=== PATIENT | female | born 1995 | race Caucasian/White ===

== ENCOUNTER 2019-07-13 11:20 | Emergency (ER) | payer BC, OTHER ==
[~2019-07-13] VITALS: Ht 152.4 cm; Wt 88.5 kg
[2019-07-13] MEDS ORDERED: IV NORMAL SALINE 1,000ML 1,000 ML IV ONE (11:45)
--- NOTE | 2019-07-13 11:50 | PHYS DOC ---
Adult General Chief Complaint Chief Complaint: FLANK PAIN HPI HPI 23-year-old female presents with left flank pain. The patient had pain starting in her chest a couple of days ago. It resolved on its own. She had another episode the next day. Was all the other side of her chest. These pains are sharp and intense last less than a minute. Today the patient has had more persistent pain in her left flank that radiates across her abdomen. She says that when the pain is at its worst it is severe. He had a mild level. The pain is sharp and stabbing. Patient denies dysuria or increased urinary frequency. Last menstrual period was 2 weeks ago. She denies fever or chills. Review of Systems Review of Systems Constitutional: Denies fever or chills [] Eyes: Denies change in visual acuity, redness, or eye pain [] HENT: Denies nasal congestion or sore throat [] Respiratory: Denies cough or shortness of breath [] Cardiovascular: No additional information not addressed in HPI [] GI: Denies abdominal pain, nausea, vomiting, bloody stools or diarrhea [] : Denies dysuria or hematuria [] Musculoskeletal: Left flank pain[] Integument: Denies rash or skin lesions [] Neurologic: Denies headache, focal weakness or sensory changes [] Endocrine: Denies polyuria or polydipsia [] All other systems were reviewed and found to be within normal limits, except as documented in this note. Current Medications Current Medications Current Medications Medications (Trade) Dose Ordered Sig/Annabelle Start Time Stop Time Status Last Admin Dose Admin Sodium Chloride 1,000 ml @ 1,000 mls/hr 1X ONCE 07/13/19 11:45 07/13/19 12:44 UNV Allergies Allergies Allergies Coded Allergies Type Severity Reaction Last Updated Verified No Known Drug Allergies 07/13/19 No Physical Exam Physical Exam Constitutional: Well developed, obese, well nourished, no acute distress, non- toxic appearance. [] HENT: Normocephalic, atraumatic, bilateral external ears normal, oropharynx moist, no oral exudates, nose normal. [] Eyes: PERRLA, EOMI, conjunctiva normal, no discharge. [] Neck: Normal range of motion, no tenderness, supple, no stridor. [] Cardiovascular:Heart rate regular rhythm, no murmur [] Lungs & Thorax: Bilateral breath sounds clear to auscultation [] Abdomen: Bowel sounds normal, soft, no tenderness, no masses, no pulsatile masses. [] Skin: Warm, dry, no erythema, no rash. [] Back: No tenderness, no CVA tenderness. [] Extremities: No tenderness, no cyanosis, no clubbing, ROM intact, no edema. [] Neurologic: Alert and oriented X 3, normal motor function, normal sensory function, no focal deficits noted. [] Psychologic: Affect normal, judgement normal, mood normal. : deferred due to patient request [] EKG EKG [] Radiology/Procedures Radiology/Procedures [] Impressions: Indication:Flank pain. Positive test. TECHNIQUE: Ultrasound OB less than 14 weeks.. COMPARISON: None FINDINGS: Anteverted uterus measuring 11 point for by 5.0 x 7.0 cm. Cervix measures 4.1 cm in length and is closed. Single intrauterine seen with yolk sac measuring 2.6 mm in diameter. [place]-rump length measures 0.62 cm corresponding to estimated gestation age of 6 weeks 3 days. No cardiac motion identified. The right ovary measures 2.6 x 1.6 x 1.8 cm. Left ovary is not visualized. IMPRESSION: Single intrauterine line without sonographic evidence of cardiac activity. Findings are concerning for failed first trimester . Correlate with beta-hCG. Electronically signed by: Abraham Zamarripa DO (07/13/2019 1:01 PM) [facility] DICTATED AND SIGNED BY: ABRAHAM ZAMARRIPA DO DATE: 07/13/19 6861 CC: KING TORREZ DO; PCP,NO ~ Course & Med Decision Making Course & Med Decision Making Pertinent Labs and Imaging studies reviewed. (See chart for details) The patient's urine is positive. I will order a quantitative serum hCG and an ultrasound. Patient has urinary tract infection. I will treat her with 1 g Rocephin IV followed by oral antibiotics. Her serum hCG is 20,064. Her ultrasound shows an intrauterine fetus, but no heartbeat. The patient has deferred physical exam to see if her cervical os is closed. 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 This is likely a missed as she had bleeding couple weeks ago, but there is still retained tissue. Patient understands this. She will follow-up as an is possible. She is stable for discharge at this time. [] Dragon Disclaimer Dragon Disclaimer This electronic medical record was generated, in whole or in part, using a voice recognition dictation system. Departure Departure: Impression: Primary Impression: UTI (urinary tract infection) Additional Impression: Missed with demise before 20 completed weeks of gestation Disposition: HOME, SELF-CARE Condition: STABLE Referrals: PCP,NO (PCP) Patient Instructions: Miscarriage, [id number] Scripts Nitrofurantoin Monohyd/M-Cryst (MACROBID 100 MG CAPSULE) 100 Mg Capsule 1 CAP PO BID for UTI, #10 CAP Prov: KING TORREZ DO 07/13/19 Problem Qualifiers Primary Impression: UTI (urinary tract infection) Urinary tract infection type: acute cystitis Hematuria presence: with hematuria Qualified Codes: N30.01 - Acute cystitis with hematuria KING TORREZ DO Jul 13, 2019 11:50
[2019-07-13 12:01] LABS: BACTERIA,URINE MOD /HPF (0-FEW); BILIRUBIN,URINE NEG (NEG); CLARITY,URINE CLOUDY; COLOR,URINE YELLOW; GLUCOSE,URINE NEG (NEG); NITRITE,URINE NEG (NEG); UROBILINOGEN,URINE 1 mg/dL (0.2 mg/dL)
[2019-07-13 12:02] LABS: SQUAMOUS EPITHELIAL CELL,UR MOD /LPF
[2019-07-13 12:25] LABS: BASO # 0.1 x10^3/uL (0.0-0.2); BASO % 1 % (0-3); EOS # 0.1 x10^3/uL (0.0-0.7); EOS % 1 % (0-3); HEMATOCRIT 35.4 % (36.0-47.0); HEMOGLOBIN 11.4 g/dL (12.0-15.5); LYMPH # 2.2 x10^3/uL (1.0-4.8); LYMPH % 24 % (24-48); MEAN CORPUSCULAR HEMOGLOBIN 25 pg (25-35); MEAN CORPUSCULAR HGB CONC 32 g/dL (31-37); MEAN CORPUSCULAR VOLUME 79 fL (79-100); MONO # 0.6 x10^3/uL (0.0-1.1); MONO % 6 % (0-9); NEUT # 6.5 x10^3uL (1.8-7.7); NEUT % 68 % (31-73); PLATELET COUNT 361 x10^3/uL (140-400); RED BLOOD COUNT 4.48 x10^6/uL (3.50-5.40); RED CELL DISTRIBUTION WIDTH 16.3 % (11.5-14.5); WHITE BLOOD COUNT 9.5 x10^3/uL (4.0-11.0)
[2019-07-13 12:37] LABS: ALBUMIN 3.5 g/dL (3.4-5.0); ALBUMIN/GLOBULIN RATIO 0.9 (1.0-1.7); CALCIUM 8.7 mg/dL (8.5-10.1); CREATININE 0.6 mg/dL (0.6-1.0); GFR 122.8; POTASSIUM 3.8 mmol/L (3.5-5.1); TOTAL BILIRUBIN 0.3 mg/dL (0.2-1.0); TOTAL PROTEIN 7.6 g/dL (6.4-8.2)
--- NOTE | 2019-07-13 13:04 | RAD ---
Indication:Flank pain. Positive test. TECHNIQUE: Ultrasound OB less than 14 weeks.. COMPARISON: None FINDINGS: Anteverted uterus measuring 11 point for by 5.0 x 7.0 cm. Cervix measures 4.1 cm in length and is closed. Single intrauterine seen with yolk sac measuring 2.6 mm in diameter. [place]-rump length measures 0.62 cm corresponding to estimated gestation age of 6 weeks 3 days. No cardiac motion identified. The right ovary measures 2.6 x 1.6 x 1.8 cm. Left ovary is not visualized. IMPRESSION: Single intrauterine line without sonographic evidence of cardiac activity. Findings are concerning for failed first trimester . Correlate with beta-hCG. Electronically signed by: Abraham Copeland DO (07/13/2019 1:01 PM) [facility]
[2019-07-13] MEDS ORDERED: IV NORMAL SALINE 50ML 50 ML ONE (13:09)
[2019-07-13] MEDS ORDERED: cefTRIAXone SODIUM 1 GM VIAL ONE (13:09)
[2019-07-13] MEDS ORDERED: NITR100C62 PO (13:45)
[2019-07-13 14:40] VITALS: BP 146/72
== END 2019-07-13 14:47 | disposition home or self-care (01) ==
LOC: ER 11:20
DX: O23.41 Unspecified infection of urinary tract in pregnancy, first trimester (principal); O02.1 Missed abortion; Z3A.01 Less than 8 weeks gestation of pregnancy
CPT/HCPCS: 36415; 76801; 76817; 80053; 81001; 81025; 84702; 85025; 86900; 86901; 87086; 96374; 99285; J0696; J7030

== ENCOUNTER 2020-03-14 12:50 | Emergency (ER) | payer OTHER ==
[~2020-03-14] VITALS: Ht 152.4 cm; Wt 97.7 kg
[~2020-03-14 12:50] MED LIST: NITR100C62 PO
[2020-03-14 13:48] LABS: BACTERIA,URINE FEW /HPF (0-FEW); BILIRUBIN,URINE NEG (NEG); CLARITY,URINE CLEAR; COLOR,URINE YELLOW; GLUCOSE,URINE NEG (NEG); NITRITE,URINE NEG (NEG); SQUAMOUS EPITHELIAL CELL,UR FEW /LPF; UROBILINOGEN,URINE 0.2 mg/dL (0.2 mg/dL)
[2020-03-14 13:48] LABS: BASO % 1 % (0-3); EOS # 0.1 x10^3/uL (0.0-0.7); EOS % 1 % (0-3); HEMATOCRIT 37.3 % (36.0-47.0); HEMOGLOBIN 12.2 g/dL (12.0-15.5); LYMPH # 2.9 x10^3/uL (1.0-4.8); LYMPH % 35 % (24-48); MEAN CORPUSCULAR HEMOGLOBIN 26 pg (25-35); MEAN CORPUSCULAR HGB CONC 33 g/dL (31-37); MEAN CORPUSCULAR VOLUME 79 fL (79-100); MONO # 0.7 x10^3/uL (0.0-1.1); MONO % 8 % (0-9); NEUT # 4.7 x10^3uL (1.8-7.7); NEUT % 56 % (31-73); PLATELET COUNT 283 x10^3/uL (140-400); RED BLOOD COUNT 4.72 x10^6/uL (3.50-5.40); RED CELL DISTRIBUTION WIDTH 15.8 % (11.5-14.5); WHITE BLOOD COUNT 8.4 x10^3/uL (4.0-11.0)
[2020-03-14 13:57] LABS: CALCIUM 8.6 mg/dL (8.5-10.1); CREATININE 0.5 mg/dL (0.6-1.0); GFR 150.3; POTASSIUM 3.4 mmol/L (3.5-5.1)
[2020-03-14 14:03] LABS: ALBUMIN 3.1 g/dL (3.4-5.0); ALBUMIN/GLOBULIN RATIO 0.7 (1.0-1.7); TOTAL BILIRUBIN 0.2 mg/dL (0.2-1.0); TOTAL PROTEIN 7.5 g/dL (6.4-8.2)
[2020-03-14 14:19] VITALS: BP 144/79
--- NOTE | 2020-03-14 14:24 | RAD ---
INDICATION: Pelvic pain COMPARISON: June 2019 TECHNIQUE: Grayscale and color ultrasound images uterus and adnexa. FINDINGS: Uterus: 131 x 96 x 58 mm. Intrauterine gestational sac is identified. [place]-rump length is 29 mm with a heart beat of 169. Right Ovary: 28 x 22 x 17 mm. Left Ovary: Obscured by bowel gas. Too early in to adequately assess placenta. Gestational sac unremarkable. IMPRESSION: * Intrauterine is identified with estimated gestational age of 9 weeks and 5 days with estimated due date of 10/12/2020. Recommend routine anomaly screening at 18-22 weeks. Electronically signed by: Mirza Hutchinson MD (03/14/2020 2:22 PM) [id number]
--- NOTE | 2020-03-14 14:38 | PHYS DOC ---
Past History Past Medical History: No Pertinent History Past Surgical History: No Surgical History Additional Past Surgical Histo: BILATERAL ARM Alcohol Use: None Drug Use: None General Adult EDM: Chief Complaint: ABDOMINAL PAIN HPI: HPI: Patient is a 24-year-old female who presented to ER today for evaluation of abdominal pain left side. Patient says she is , she says she is about 12 to 13 weeks. Her last menstrual period was on December 25, 2019. Patient have not seen an PHOTOGRAPHIC REPRODUCTION TECHNICIAN doctor yet. She denies any vaginal bleeding. Patient denies any fever, no nausea vomiting. Patient states her pain has been going on for several days. Patient says this is her second . Review of Systems: Review of Systems: Constitutional: Denies fever or chills Eyes: Denies change in visual acuity HENT: Denies nasal congestion or sore throat Respiratory: Denies cough or shortness of breath Cardiovascular: Denies chest pain or edema GI: Positive for lower abdominal pain, no nausea vomiting, no vaginal bleeding or discharge. : Denies dysuria Musculoskeletal: Denies back pain or joint pain Integument: Denies rash Neurologic: Denies headache, focal weakness or sensory changes Endocrine: Denies polyuria or polydipsia Lymphatic: Denies swollen glands Psychiatric: Denies depression or anxiety Heart Score: Risk Factors: Risk Factors: DM, Current or recent (<one month) smoker, HTN, HLP, family history of CAD, obesity. Risk Scores: Score 0 - 3: 2.5% MACE over next 6 weeks - Discharge Home Score 4 - 6: 20.3% MACE over next 6 weeks - Admit for Clinical Observation Score 7 - 10: 72.7% MACE over next 6 weeks - Early Invasive Strategies Allergies: Allergies: Allergies Coded Allergies Type Severity Reaction Last Updated Verified No Known Drug Allergies 07/13/19 No Physical Exam: PE: Constitutional: Well developed, well nourished, no acute distress, non-toxic appearance. [] HENT: Normocephalic, atraumatic, bilateral external ears normal, oropharynx moist, no oral exudates, nose normal. [] Eyes: PERRLA, EOMI, conjunctiva normal, no discharge. [] Neck: Normal range of motion, no tenderness, supple, no stridor. [] Cardiovascular:Heart rate regular rhythm, no murmur [] Lungs & Thorax: Bilateral breath sounds clear to auscultation [] Abdomen: Bowel sounds normal, soft, no tenderness, no masses, no pulsatile masses. There is no tenderness to palpation Skin: Warm, dry, no erythema, no rash. [] Back: No tenderness, no CVA tenderness. [] Extremities: No tenderness, no cyanosis, no clubbing, ROM intact, no edema. [] Neurologic: Alert and oriented X 3, normal motor function, normal sensory function, no focal deficits noted. [] Psychologic: Affect normal, judgement normal, mood normal. [] Current Patient Data: Labs: Laboratory Tests Test 03/14/20 12:55 03/14/20 13:30 Urine Collection Type Unknown Urine Color Yellow Urine Clarity Clear Urine pH 7.0 Urine Specific [place] 1.020 Urine Protein Neg (NEG-TRACE) Urine Glucose (UA) Neg mg/dL (NEG) Urine Ketones (Stick) Neg mg/dL (NEG) Urine Blood Neg (NEG) Urine Nitrite Neg (NEG) Urine Bilirubin Neg (NEG) Urine Urobilinogen Dipstick 0.2 mg/dL (0.2 mg/dL) Urine Leukocyte Esterase Small (NEG) Urine RBC 1-2 /HPF (0-2) Urine WBC 1-4 /HPF (0-4) Urine Squamous Epithelial Cells Few /LPF Urine Bacteria Few /HPF (0-FEW) Urine Mucus Slight /LPF White Blood Count 8.4 x10^3/uL (4.0-11.0) Red Blood Count 4.72 x10^6/uL (3.50-5.40) Hemoglobin 12.2 g/dL (12.0-15.5) Hematocrit 37.3 % (36.0-47.0) Mean Corpuscular Volume 79 fL (79-100) Mean Corpuscular Hemoglobin 26 pg (25-35) Mean Corpuscular Hemoglobin Concent 33 g/dL (31-37) Red Cell Distribution Width 15.8 % (11.5-14.5) H Platelet Count 283 x10^3/uL (140-400) Neutrophils (%) (Auto) 56 % (31-73) Lymphocytes (%) (Auto) 35 % (24-48) Monocytes (%) (Auto) 8 % (0-9) Eosinophils (%) (Auto) 1 % (0-3) Basophils (%) (Auto) 1 % (0-3) Neutrophils # (Auto) 4.7 x10^3uL (1.8-7.7) Lymphocytes # (Auto) 2.9 x10^3/uL (1.0-4.8) Monocytes # (Auto) 0.7 x10^3/uL (0.0-1.1) Eosinophils # (Auto) 0.1 x10^3/uL (0.0-0.7) Basophils # (Auto) 0.0 x10^3/uL (0.0-0.2) Maternal Serum HCG Beta Subunit 01662 mIU/mL (0-6) H Sodium Level 135 mmol/L (136-145) L Potassium Level 3.4 mmol/L (3.5-5.1) L Chloride Level 101 mmol/L (98-107) Carbon Dioxide Level 24 mmol/L (21-32) Anion Gap 10 (6-14) Blood Urea Nitrogen 8 mg/dL (7-20) Creatinine 0.5 mg/dL (0.6-1.0) L Estimated GFR (Cockcroft-Gault) 150.3 BUN/Creatinine Ratio 16 (6-20) Glucose Level 88 mg/dL (70-99) Calcium Level 8.6 mg/dL (8.5-10.1) Total Bilirubin 0.2 mg/dL (0.2-1.0) Aspartate Amino Transferase (AST) 13 U/L (15-37) L Alanine Aminotransferase (ALT) 18 U/L (14-59) Alkaline Phosphatase 70 U/L (46-116) Total Protein 7.5 g/dL (6.4-8.2) Albumin 3.1 g/dL (3.4-5.0) L Albumin/Globulin Ratio 0.7 (1.0-1.7) L Vital Signs: Vital Signs Date Time Temp Pulse Resp B/P (MAP) Pulse Ox O2 Delivery O2 Flow Rate FiO2 03/14/20 14:19 97.8 100 18 144/79 (100) 99 Room Air EKG: EKG: [] Radiology/Procedures: Radiology/Procedures: [][address] [address] IMAGING REPORT Signed PATIENT: JUAN KYLE ACCOUNT: [id number] : 1995 LOCATION: ER AGE: 24 SEX: F EXAM STATUS: REG ER ORD. PHYSICIAN: ESTEPHANIA CONNER DO REASON: LMP 12/25/19, ABDOMINAL PAIN PROCEDURE: OB <14 WKS INDICATION: Pelvic pain COMPARISON: June 2019 TECHNIQUE: Grayscale and color ultrasound images uterus and adnexa. FINDINGS: Uterus: 131 x 96 x 58 mm. Intrauterine gestational sac is identified. [place]-rump length is 29 mm with a heart beat of 169. Right Ovary: 28 x 22 x 17 mm. Left Ovary: Obscured by bowel gas. Too early in to adequately assess placenta. Gestational sac unremarkable. IMPRESSION: * Intrauterine is identified with estimated gestational age of 9 weeks and 5 days with estimated due date of 10/12/2020. Recommend routine anomaly screening at 18-22 weeks. Electronically signed by: Link Sánchez MD (03/14/2020 2:22 PM) [id number] DICTATED AND SIGNED BY: LINK SÁNCHEZ MD DATE: 03/14/20 1422 CC: PCPBANDAR; ESTEPHANIA CONNER DO ~ Course & Med Decision Making: Course & Med Decision Making Pertinent Labs and Imaging studies reviewed. (See chart for details) Patient is a 24-year-old female who was evaluated in ER due to abdominal pain, she is , ultrasound showed that she is about 9 weeks 5 days . She was in no acute distress, no fever, no nausea vomiting. Patient will be discharged home, she will need to follow-up with PHOTOGRAPHIC REPRODUCTION TECHNICIAN doctor for outpatient care. Drew Disclaimer: Drew Disclaimer: This electronic medical record was generated, in whole or in part, using a voice recognition dictation system. Departure Departure: Impression: Primary Impression: Abdominal pain during Disposition: HOME/RESIDENCE PRIOR TO ADM Condition: STABLE Referrals: PCP,BANDAR (PCP) follow up with YOUR PHOTOGRAPHIC REPRODUCTION TECHNICIAN doctor this week. Patient Instructions: Abdominal Pain During ESTEPHANIA CONNER DO March 14, 2020 14:38
== END 2020-03-14 14:50 | disposition home or self-care (01) ==
LOC: ER 12:50
DX: O26.891 Other specified pregnancy related conditions, first trimester (principal); R10.30 Lower abdominal pain, unspecified; Z3A.09 9 weeks gestation of pregnancy
CPT/HCPCS: 36415; 76801; 80053; 81001; 84702; 85025; 86900; 86901; 87086; 99284-25

== ENCOUNTER 2020-08-13 16:33 | Emergency (ER) | payer OTHER ==
[~2020-08-13] VITALS: Ht 152.4 cm; Wt 108.9 kg
[2020-08-13 16:45] VITALS: BP 137/81
--- NOTE | 2020-08-13 18:09 | PHYS DOC ---
Past History Past Medical History: No Pertinent History Past Surgical History: Cholecystectomy, Other Additional Past Surgical Histo: D&C Alcohol Use: None Drug Use: None General Adult EDM: Chief Complaint: COUGH HPI: HPI: 24-year-old female at 31 weeks gestational age with productive cough, nausea, vomiting, body aches for 2 days. Was seen in urgent care yesterday and had a rapid Covid that was negative. Review of Systems: Review of Systems: Constitutional: Denies fever, but has chills Eyes: Denies change in visual acuity HENT: Denies nasal congestion or sore throat Respiratory: Denies cough or shortness of breath Cardiovascular: Denies chest pain or edema GI: Denies abdominal pain, nausea, vomiting, bloody stools or diarrhea : Denies dysuria Musculoskeletal: Denies back pain or joint pain Integument: Denies rash Neurologic: Denies headache, focal weakness or sensory changes Endocrine: Denies polyuria or polydipsia Lymphatic: Denies swollen glands Psychiatric: Denies depression or anxiety Heart Score: Risk Factors: Risk Factors: DM, Current or recent (<one month) smoker, HTN, HLP, family history of CAD, obesity. Risk Scores: Score 0 - 3: 2.5% MACE over next 6 weeks - Discharge Home Score 4 - 6: 20.3% MACE over next 6 weeks - Admit for Clinical Observation Score 7 - 10: 72.7% MACE over next 6 weeks - Early Invasive Strategies Allergies: Allergies: Allergies Coded Allergies Type Severity Reaction Last Updated Verified No Known Drug Allergies 07/13/19 No Physical Exam: PE: Constitutional: Well developed, well nourished, no acute distress, non-toxic a ppearance. [] HENT: Normocephalic, atraumatic, bilateral external ears normal, oropharynx moist, no oral exudates, nose normal. [] Eyes: PERRLA, EOMI, conjunctiva normal, no discharge. [] Neck: Normal range of motion, no tenderness, supple, no stridor. [] Cardiovascular:Heart rate regular rhythm, no murmur [] Lungs & Thorax: Bilateral breath sounds clear to auscultation [] Abdomen: Bowel sounds normal, soft, no tenderness, no masses, no pulsatile masses. [] Skin: Warm, dry, no erythema, no rash. [] Back: No tenderness, no CVA tenderness. [] Extremities: No tenderness, no cyanosis, no clubbing, ROM intact, no edema. [] Neurologic: Alert and oriented X 3, normal motor function, normal sensory function, no focal deficits noted. [] Psychologic: Affect normal, judgement normal, mood normal. [] Current Patient Data: Vital Signs: Vital Signs Date Time Temp Pulse Resp B/P (MAP) Pulse Ox O2 Delivery O2 Flow Rate FiO2 08/13/20 16:45 97.8 114 20 137/81 (99) 98 Room Air EKG: EKG: [] Radiology/Procedures: Radiology/Procedures: Exam: Chest one view INDICATION: Pneumonia, cough, congestion TECHNIQUE: Frontal view of the chest Comparisons: None FINDINGS: The cardiomediastinal silhouette and pulmonary vessels are within normal limits. The lung and pleural spaces are clear. IMPRESSION: No acute cardiopulmonary process. [] Course & Med Decision Making: Course & Med Decision Making Pertinent Labs and Imaging studies reviewed. (See chart for details) [] Dragon Disclaimer: Dragon Disclaimer: This electronic medical record was generated, in whole or in part, using a voice recognition dictation system. Departure Departure: Disposition: 01 NM HOME SELF CARE/HOMELESS Condition: STABLE Referrals: PCP,NO (PCP) Scripts Ondansetron (ONDANSETRON ODT) 4 Mg Tab.rapdis 1 TAB PO PRN Q6-8HRS for nausa, #16 TAB Prov: KASI QUESADA MD 08/13/20 KASI QUESADA MD Aug 13, 2020 18:09
[2020-08-13 18:18] LABS: INFLUENZA A PATIENT NEGATIVE (NEGATIVE); INFLUENZA B PATIENT NEGATIVE (NEGATIVE)
--- NOTE | 2020-08-13 18:19 | RAD ---
Exam: Chest one view INDICATION: Pneumonia, cough, congestion TECHNIQUE: Frontal view of the chest Comparisons: None FINDINGS: The cardiomediastinal silhouette and pulmonary vessels are within normal limits. The lung and pleural spaces are clear. IMPRESSION: No acute cardiopulmonary process. Electronically signed by: Kim Bolivar MD (08/13/2020 6:16 PM) [id number]
[2020-08-13] MEDS ORDERED: ONDA4TAB12 PO (18:32)
== END 2020-08-13 18:50 | disposition home or self-care (01) ==
LOC: ER 16:33
DX: O21.9 Vomiting of pregnancy, unspecified (principal); M79.10 Myalgia, unspecified site; R05 Cough; Z3A.31 31 weeks gestation of pregnancy
CPT/HCPCS: 71045; 87804; 99284

== ENCOUNTER 2020-09-20 15:45 | Emergency (ER) | payer OTHER ==
[~2020-09-20] VITALS: Ht 152.4 cm; Wt 109.0 kg
[~2020-09-20 15:45] MED LIST changes: +ONDA4TAB12 PO
[2020-09-20] MEDS ORDERED: IV NORMAL SALINE 1,000ML 1,000 ML IV ONE (16:00)
--- NOTE | 2020-09-20 16:04 | PHYS DOC ---
Past History Past Medical History: MRSA, Seizure Past Surgical History: Cholecystectomy, Other Additional Past Surgical Histo: D&C Smoking: Non-smoker Alcohol Use: None Drug Use: None General Adult EDM: Chief Complaint: OB/UTERINE CONTRACTIONS HPI: HPI: Patient is a 24 year old female who presents with reports of sensation of "contractions". Patient is 37 weeks [id number]. Reports constant 9/10 pain since 529. Denies fever, headache, or dizziness. Denies fever/chills. Denies trauma. LMP 12/25. Patient "feels like she peed herself" 30 mins ago. Patient had OB appointment last Saturday and was 3 cm dilated at that time. Review of Systems: Review of Systems: Constitutional: Denies fever or chills Eyes: Denies redness or eye pain HENT: Denies nasal congestion or sore throat Respiratory: Reports cough with clear sputum for past week. Cardiovascular: Denies chest pain or palpitations GI/ELECTRONICS INSTRUCTOR: Reports pelvic cramping and . : Denies dysuria or hematuria Musculoskeletal: Denies back pain or joint pain Integument: Denies rash or skin lesions Neurologic: Denies headache, focal weakness or sensory changes Complete systems were reviewed and found to be within normal limits, except as documented in this note. Current Medications: Current Meds: Current Medications Medications (Trade) Dose Ordered Sig/Annabelle Start Time Stop Time Status Last Admin Dose Admin Sodium Chloride 1,000 ml @ 1,000 mls/hr 1X ONCE 09/20/20 16:00 09/20/20 16:59 Allergies: Allergies: Allergies Coded Allergies Type Severity Reaction Last Updated Verified No Known Drug Allergies 09/20/20 No Physical Exam: PE: Constitutional: Well developed, obese, no acute distress, non-toxic appearance HENT: Normocephalic, atraumatic Eyes: Conjunctiva normal, no discharge Neck: Normal range of motion, no tenderness, supple Lungs & Thorax: No respiratory distress, equal chest rise and fall Abdomen: Soft, no tenderness, no guarding/rebound tenderness, gravid abdomen Pelvic exam: No , external genitalia normal, deferred to OB Skin: Warm, dry, no erythema, no rash Extremities: No tenderness, ROM intact, no edema Neurologic: Alert and oriented X 3, no focal deficits noted Psychologic: Affect normal, judgment normal Current Patient Data: Vital Signs: Vital Signs Date Time Temp Pulse Resp B/P (MAP) Pulse Ox O2 Delivery O2 Flow Rate FiO2 09/20/20 15:50 98.1 117 20 123/65 (84) 100 Room Air Course & Med Decision Making: Course & Med Decision Making Patient is a 24 year old female who presents with pelvic pain/cramping. Patient is 37 weeks [id number]. Reports constant 9/10 pain since 529. Patient "feels like she peed herself" 30 mins ago. Patient had OB appointment last Saturday and was 3 cm. Patient reporting contractions approximately every 10 min. NO noted. NO bloody show. heart tones 135bpm. Labs obtained and posted to chart. IVF hydration given. Patient requiring transfer for further evaluation and monitoring in labor and delivery. Reports she follow with Dr. Mathews (OB) at [facility]. Utilized [facility] transfer center. Discussed case with Dr. Pema Flor (OB mission commander with Dr. Mathews), who is in agreement with transfer to labor and delivery at [facility] for further evaluation and treatment. Discussed findings and plan with patient, who acknowledges understanding and agreement. [place]ait Disclaimer: Dragon Disclaimer: This electronic medical record was generated, in whole or in part, using a voice recognition dictation system. Departure Departure: Impression: Primary Impression: Uterine contractions at greater than 20 weeks of gestation Disposition: 05 DC/TRF OTHER TYPE INSTITUTI ([facility] Labor and Delivery- Dr. Pema Flor (OB) accepting) Condition: STABLE Referrals: PCP,BANDAR (PCP) ASIF SULLIVAN DO Sep 20, 2020 16:03
[2020-09-20 16:28] LABS: BASO # 0.1 x10^3/uL (0.0-0.2); BASO % 1 % (0-3); EOS # 0.2 x10^3/uL (0.0-0.7); EOS % 1 % (0-3); HEMOGLOBIN 9.5 g/dL (12.0-15.5); LYMPH # 3.7 x10^3/uL (1.0-4.8); LYMPH % 32 % (24-48); MEAN CORPUSCULAR HEMOGLOBIN 25 pg (25-35); MEAN CORPUSCULAR HGB CONC 32 g/dL (31-37); MEAN CORPUSCULAR VOLUME 78 fL (79-100); MONO # 0.6 x10^3/uL (0.0-1.1); MONO % 5 % (0-9); NEUT % 61 % (31-73); PLATELET COUNT 344 x10^3/uL (140-400); RED BLOOD COUNT 3.84 x10^6/uL (3.50-5.40); RED CELL DISTRIBUTION WIDTH 14.1 % (11.5-14.5); WHITE BLOOD COUNT 11.6 x10^3/uL (4.0-11.0)
[2020-09-20 16:36] LABS: CALCIUM 8.4 mg/dL (8.5-10.1); CREATININE 0.7 mg/dL (0.6-1.0); POTASSIUM 3.2 mmol/L (3.5-5.1)
[2020-09-20 16:42] LABS: ALBUMIN 2.6 g/dL (3.4-5.0); ALBUMIN/GLOBULIN RATIO 0.5 (1.0-1.7); MAGNESIUM 1.6 mg/dL (1.8-2.4); TOTAL BILIRUBIN 0.4 mg/dL (0.2-1.0); TOTAL PROTEIN 7.4 g/dL (6.4-8.2)
[2020-09-20] MEDS ORDERED: ONDANSETRON PF 4 MG/2 ML VIAL. IVP ONE (17:45)
[2020-09-20 18:11] VITALS: BP 116/58
== END 2020-09-20 18:01 | disposition short-term general hospital (02) ==
LOC: ER 15:45
DX: O62.8 Other abnormalities of forces of labor (principal); Z3A.37 37 weeks gestation of pregnancy
CPT/HCPCS: 36415; 80053; 83735; 85025; 96361; 96374; 99285; J2405; J7030

== ENCOUNTER 2020-12-01 08:05 | Emergency (ER) | payer OTHER ==
[~2020-12-01] VITALS: Ht 152.4 cm; Wt 100.0 kg
[2020-12-01] MEDS ORDERED: IV NORMAL SALINE 1,000ML 1,000 ML IV ONE (08:15)
[2020-12-01 08:51] LABS: BASO # 0.1 x10^3/uL (0.0-0.2); BASO % 1 % (0-3); EOS # 0.2 x10^3/uL (0.0-0.7); EOS % 2 % (0-3); HEMATOCRIT 34.7 % (36.0-47.0); HEMOGLOBIN 10.8 g/dL (12.0-15.5); LYMPH # 3.5 x10^3/uL (1.0-4.8); LYMPH % 37 % (24-48); MEAN CORPUSCULAR HEMOGLOBIN 24 pg (25-35); MEAN CORPUSCULAR HGB CONC 31 g/dL (31-37); MEAN CORPUSCULAR VOLUME 78 fL (79-100); MONO # 0.5 x10^3/uL (0.0-1.1); MONO % 6 % (0-9); NEUT # 5.2 x10^3uL (1.8-7.7); NEUT % 55 % (31-73); PLATELET COUNT 373 x10^3/uL (140-400); RED BLOOD COUNT 4.46 x10^6/uL (3.50-5.40); RED CELL DISTRIBUTION WIDTH 16.1 % (11.5-14.5); WHITE BLOOD COUNT 9.6 x10^3/uL (4.0-11.0)
[2020-12-01 08:52] LABS: U PREG PATIENT NEGATIVE (NEG)
[2020-12-01 08:55] LABS: CALCIUM 8.3 mg/dL (8.5-10.1); CREATININE 0.7 mg/dL (0.6-1.0); GFR 101.1
--- NOTE | 2020-12-01 08:56 | PHYS DOC ---
Past History Past Medical History: Seizure Past Surgical History: Cholecystectomy, Tonsillectomy, Other Additional Past Surgical Histo: ARM SUREGY Smoking: Non-smoker Alcohol Use: None Drug Use: None General Adult EDM: Chief Complaint: SEIZURE HPI: HPI: Patient is a 25 year old female, with PMHx of seizures, that presents to the ED via EMS for a witnessed seizure by her boyfriend. She states she woke up this morning nauseous, and went to the bathroom twice to try to vomit, but was unable to. She went back to bed, at an unknown time, and fell asleep, when the boyfriend witnessed seizure-like activity and called EMS. Boyfriend is not in ED, and patient has limited history of seizure like event. She does report falling out of bed and landing on her carpet floor, and might have hit her head on the dresser, but denies any headache or blurry vision. She states she was able to wake up from the event, and had no period of confusion. No episode of incontinence, or trauma to the tongue. She states she has had seizures for a couple years, with her last seizure being a year ago. Patient last saw a neurologist a year ago, and is not taking any medications for her seizures. She is 2 months, from an uncomplicated . No abdominal pain or vaginal bleeding. Patient has no other complaints or symptoms at this time. Review of Systems: Review of Systems: Constitutional: Denies fever or chills Eyes: Denies redness or eye pain HENT: Denies nasal congestion or sore throat. No tongue trauma. Respiratory: Denies cough or shortness of breath Cardiovascular: Denies chest pain or palpitations GI: Denies abdominal pain, or vomiting. No incontinence. : Positive for nausea. Denies dysuria or hematuria. No incontinence. Musculoskeletal: Denies back pain or joint pain Integument: Denies rash or skin lesions Neurologic: Denies headache, focal weakness or sensory changes. Witnessed seizure. Complete systems were reviewed and found to be within normal limits, except as documented in this note. Current Medications: Current Meds: Current Medications Medications (Trade) Dose Ordered Sig/Annabelle Start Time Stop Time Status Last Admin Dose Admin Sodium Chloride 1,000 ml @ 1,000 mls/hr 1X ONCE 12/01/20 08:15 12/01/20 09:14 Allergies: Allergies: Allergies Coded Allergies Type Severity Reaction Last Updated Verified No Known Drug Allergies 12/01/20 No Physical Exam: PE: Constitutional: Well developed, well nourished, no acute distress, non-toxic appearance HENT: Normocephalic, atraumatic Eyes: PERRL, EOMI, conjunctiva normal, no discharge Neck: Normal range of motion, no tenderness, supple Lungs & Thorax: No respiratory distress, equal chest rise and fall Abdomen: Soft, no tenderness Skin: Warm, dry, no erythema, no rash Back: No tenderness, no CVA tenderness Extremities: No tenderness, ROM intact, no edema Neurologic: Alert and oriented X 3, normal motor function, normal sensory function, no focal deficits noted Psychologic: Affect normal, judgment normal Current Patient Data: Vital Signs: Vital Signs Date Time Temp Pulse Resp B/P (MAP) Pulse Ox O2 Delivery O2 Flow Rate FiO2 12/01/20 08:11 98.1 116 18 146/70 (95) 98 Room Air Radiology/Procedures: Radiology/Procedures: PROCEDURE: CT HEAD WO CONTRAST CT HEAD/BRAIN WO Date: 12/01/2020 8:47 AM Clinical Indication: Recent seizure like activity, hx of recent head trauma, history of seizures Comparison: None. Technique: 5 mm axial tomographic images were obtained of the head without contrast. These were viewed on brain and bone windows. One or more of the following dose reduction techniques were utilized: Automated exposure control (AEC), Adjustment of mA and/or kV according to patient size, Use of iterative reconstruction technique such as ASiR, CT scan done according to ALARA and image gently/image wisely Findings: The brain parenchyma is normal in attenuation. No intra- or extra-axial mass or fluid collection. No acute hemorrhage. Dilatation of the lateral and third ventricles. The de la rosa-white matter junction is normal. The subarachnoid cisterns are patent. Mild crowding of the foramen magnum by the cerebellar tonsils. The visualized paranasal sinuses are normal. The visualized portions of the orbits and globes are normal. The mastoid air cells are clear. The account consultant topogram shows no lytic lesion or fracture. Impression: Hydrocephalus. Given history of seizure disorder this may be an acute or chronic process. Correlate with patient's history and/or prior imaging. If this is an unknown/acute state, neurosurgical evaluation and contrast enhanced MRI brain are recommended. Mild crowding of the foramen magnum by the cerebellar tonsils would be better evaluated by MRI to assess for Chiari malformation. FOR INTERNAL CODING PURPOSES Critical result: Findings discussed with Dr. Sullivan at 12/01/2020 9:30 AM. RESULT CODE: (C) Electronically signed by: Trae Villanueva MD (12/01/2020 9:31 AM) [id number] Course & Med Decision Making: Course & Med Decision Making Pertinent Labs and Imaging studies reviewed. (See chart for details) Patient is a 25 year old female, that presents to the ED via EMS for a seizure. Plan to labs and urine, with imaging of head and neck secondary to the fall. Symptomatic treatment. Urine appears to be contaminated. Radiology called about patients CT head showing hydrocephaly. Per patient she has been told she has had "extra water on the brain." No old head CT available for comparison. Patient is neurologically intact, with no headache and states she feels "good," with no complaints. Patient was told to not drive for 6 months or until cleared by neurologist. Patient stable for discharge with outpatient follow-up with PCP. Discussed findings and plan with patient, who acknowledges understanding and agreement. Drew Disclaimer: Drew Disclaimer: This electronic medical record was generated, in whole or in part, using a voice recognition dictation system. Departure Departure: Impression: Primary Impression: Seizure Additional Impression: Nausea Disposition: 01 DC HOME SELF CARE/HOMELESS Condition: STABLE Referrals: PCP,NO (PCP) NATACHA DOLL MD Patient Instructions: Seizure, Adult, [id number] Additional Instructions: Please follow closely with your doctor or neurology. Refrain from operating a motor vehicle or any heavy machinery for 6 months or until cleared by neurologist. Scripts Ondansetron (ONDANSETRON ODT) 4 Mg Tab.rapdis 1 TAB PO PRN Q6-8HRS PRN for NAUSEA, #16 TAB Prov: ASIF SULLIVAN DO 12/01/20 ASIF SULLIVAN DO Dec 01, 2020 08:56
[2020-12-01] MEDS ORDERED: ONDANSETRON PF 4 MG/2 ML VIAL. IVP ONE (09:00)
[2020-12-01 09:01] LABS: ALBUMIN/GLOBULIN RATIO 0.7 (1.0-1.7); MAGNESIUM 1.6 mg/dL (1.8-2.4); TOTAL BILIRUBIN 0.2 mg/dL (0.2-1.0); TOTAL PROTEIN 7.2 g/dL (6.4-8.2)
[2020-12-01 09:09] LABS: BACTERIA,URINE FEW /HPF (0-FEW); BILIRUBIN,URINE NEG (NEG); CLARITY,URINE HAZY; COLOR,URINE YELLOW; GLUCOSE,URINE NEG (NEG); NITRITE,URINE NEG (NEG); SQUAMOUS EPITHELIAL CELL,UR MANY /LPF; UROBILINOGEN,URINE 0.2 mg/dL (0.2 mg/dL)
[2020-12-01] MEDS ORDERED: MAGNESIUM CHLORIDE ER 64 MG TABLET.ER PO ONE (09:30)
--- NOTE | 2020-12-01 09:33 | RAD ---
CT HEAD/BRAIN WO Date: 12/01/2020 8:47 AM Clinical Indication: Recent seizure like activity, hx of recent head trauma, history of seizures Comparison: None. Technique: 5 mm axial tomographic images were obtained of the head without contrast. These were view ed on brain and bone windows. One or more of the following dose reduction techniques were utilized: A utomated exposure control (AEC), Adjustment of mA and/or kV according to patient size, Use of iterati ve reconstruction technique such as ASiR, CT scan done according to ALARA and image gently/image randall ly Findings: The brain parenchyma is normal in attenuation. No intra- or extra-axial mass or fluid collection. No acute hemorrhage. Dilatation of the lateral and third ventricles. The de la rosa-white matter junction is n ormal. The subarachnoid cisterns are patent. Mild crowding of the foramen magnum by the cerebellar tonsils. The visualized paranasal sinuses are normal. The visualized portions of the orbits and globes are no rmal. The mastoid air cells are clear. The trimmer sorter topogram shows no lytic lesion or fracture. Impression: Hydrocephalus. Given history of seizure disorder this may be an acute or chronic process. Correlate w ith patient's history and/or prior imaging. If this is an unknown/acute state, neurosurgical evaluati on and contrast enhanced MRI brain are recommended. Mild crowding of the foramen magnum by the cerebellar tonsils would be better evaluated by MRI to ass ess for Chiari malformation. FOR INTERNAL CODING PURPOSES Critical result: Findings discussed with Dr. Chopra at 12/01/2020 9:30 AM. RESULT CODE: (C) Electronically signed by: Trae Villanueva MD (12/01/2020 9:31 AM) [id number]
[2020-12-01] MEDS ORDERED: ONDA4TAB12 PO (09:37)
[2020-12-01 09:48] VITALS: BP 128/69
== END 2020-12-01 09:49 | disposition home or self-care (01) ==
LOC: ER 08:05
DX: R56.9 Unspecified convulsions (principal); R11.0 Nausea; W06.XXXA Fall from bed, initial encounter; Y93.89 Activity, other specified; Y92.89 Other specified places as the place of occurrence of the external cause; Y99.8 Other external cause status
CPT/HCPCS: 36415; 70450; 80053; 81001; 81025; 82550; 83605; 83735; 85025; 87086; 96361; 96374; 99284; J2405; J7030

== ENCOUNTER 2021-03-06 18:13 | Emergency (ER) | payer OTHER ==
[~2021-03-06] VITALS: Ht 152.4 cm; Wt 109.0 kg
[2021-03-06] MEDS ORDERED: IV NORMAL SALINE 1,000ML 1,000 ML IV ONE (19:00)
[2021-03-06 19:26] LABS: BILIRUBIN,URINE NEG (NEG); CLARITY,URINE CLEAR; COLOR,URINE YELLOW; GLUCOSE,URINE NEG (NEG)
[2021-03-06 19:27] LABS: BACTERIA,URINE FEW /HPF (0-FEW); NITRITE,URINE NEG (NEG); SQUAMOUS EPITHELIAL CELL,UR MOD /LPF; UROBILINOGEN,URINE 0.2 mg/dL (0.2 mg/dL); WBC,URINE RARE /HPF (0-4)
[2021-03-06 19:30] VITALS: BP 137/79
[2021-03-06 19:37] LABS: BASO # 0.1 x10^3/uL (0.0-0.2); BASO % 1 % (0-3); EOS # 0.2 x10^3/uL (0.0-0.7); EOS % 2 % (0-3); HEMATOCRIT 32.7 % (36.0-47.0); HEMOGLOBIN 10.4 g/dL (12.0-15.5); LYMPH # 3.2 x10^3/uL (1.0-4.8); LYMPH % 36 % (24-48); MEAN CORPUSCULAR HEMOGLOBIN 24 pg (25-35); MEAN CORPUSCULAR HGB CONC 32 g/dL (31-37); MEAN CORPUSCULAR VOLUME 74 fL (79-100); MONO # 0.7 x10^3/uL (0.0-1.1); MONO % 8 % (0-9); NEUT # 4.7 x10^3uL (1.8-7.7); NEUT % 53 % (31-73); PLATELET COUNT 384 x10^3/uL (140-400); RED BLOOD COUNT 4.41 x10^6/uL (3.50-5.40); RED CELL DISTRIBUTION WIDTH 16.1 % (11.5-14.5)
[2021-03-06 19:45] LABS: CALCIUM 8.8 mg/dL (8.5-10.1); CREATININE 0.6 mg/dL (0.6-1.0); GFR 120.8; POTASSIUM 3.6 mmol/L (3.5-5.1)
[2021-03-06 19:51] LABS: ALBUMIN 3.4 g/dL (3.4-5.0); ALBUMIN/GLOBULIN RATIO 0.8 (1.0-1.7); TOTAL BILIRUBIN 0.2 mg/dL (0.2-1.0); TOTAL PROTEIN 7.6 g/dL (6.4-8.2)
[2021-03-06] MEDS ORDERED: METOCLOPRAMIDE HCL 10 MG/2 ML VIAL. IVP ONE (20:00)
[2021-03-06] MEDS ORDERED: KETOROLAC 30 MG/ML VIAL. IVP ONE (20:00)
[2021-03-06] MEDS ORDERED: diphenhydrAMINE 50 MG/ML VIAL IVP ONE (20:00)
--- NOTE | 2021-03-06 20:33 | RAD ---
CT HEAD/BRAIN WO Date: 03/06/2021 8:15 PM Clinical Indication: Reason: MIGRAINE. NO TRAUMA / Spl. Instructions: / History: Comparison: 12/01/2020. Technique: 5 mm axial tomographic images were obtained of the head without contrast. These were view ed on brain and bone windows. One or more of the following dose reduction techniques were utilized: A utomated exposure control (AEC), Adjustment of mA and/or kV according to patient size, Use of iterati ve reconstruction technique such as ASiR, CT scan done according to ALARA and image gently/image randall ly Findings: The brain parenchyma is normal in attenuation. No intra- or extra-axial mass or fluid collection. No acute hemorrhage. Dilatation of the lateral and third ventricles, similar to the prior. The de la rosa-whit e matter junction is normal. The subarachnoid cisterns are patent. Left maxillary sinus mucus retention cyst. The visualized portions of the orbits and globes are norm al. The mastoid air cells are clear. Mild crowding of the foramen magnum by the cerebellar tonsils. Impression: 1. No acute infarct or hemorrhage. 2. Unchanged dilated ventricles. Electronically signed by: Trae Villanueva MD (03/06/2021 8:31 PM) [facility]
--- NOTE | 2021-03-06 20:43 | PHYS DOC ---
Past History Past Medical History: Seizure Past Surgical History: Cholecystectomy, , Tonsillectomy Additional Past Surgical Histo: ARM SURGERY Smoking: Non-smoker Alcohol Use: None Drug Use: None General Adult EDM: Chief Complaint: HEADACHE HPI: HPI: 25-year-old female presents with headache. It started 2 days ago. It is a global headache. 7 out of 10. She does not typically have headaches. She denies any trauma. She denies fever or chills. She has no other complaints at this time. Review of Systems: Review of Systems: Constitutional: Denies fever or chills Eyes: Denies change in visual acuity HENT: Denies nasal congestion or sore throat Respiratory: Denies cough or shortness of breath Cardiovascular: Denies chest pain or edema GI: Denies abdominal pain, nausea, vomiting, bloody stools or diarrhea : Denies dysuria Musculoskeletal: Denies back pain or joint pain Integument: Denies rash Neurologic: Headache. Denies focal weakness or sensory changes Endocrine: Denies polyuria or polydipsia Lymphatic: Denies swollen glands Psychiatric: Denies depression or anxiety Current Medications: Current Meds: Current Medications Medications (Trade) Dose Ordered Sig/Annabelle Start Time Stop Time Status Last Admin Dose Admin Diphenhydramine HCl (Benadryl) 25 mg 1X ONCE 03/06/21 20:00 03/06/21 20:02 DC Ketorolac Tromethamine (Toradol 30mg Vial) 30 mg 1X ONCE 03/06/21 20:00 03/06/21 20:02 DC Metoclopramide HCl (Reglan Vial) 10 mg 1X ONCE 03/06/21 20:00 03/06/21 20:02 DC Sodium Chloride 1,000 ml @ 1,000 mls/hr 1X ONCE 03/06/21 19:00 03/06/21 19:59 DC 03/06/21 19:14 1,000 MLS/HR Allergies: Allergies: Allergies Coded Allergies Type Severity Reaction Last Updated Verified No Known Drug Allergies 12/01/20 No Physical Exam: PE: Constitutional: Well developed, well nourished, no acute distress, non-toxic appearance. [] HENT: Normocephalic, atraumatic, bilateral external ears normal, oropharynx moist, no oral exudates, nose normal. [] Eyes: PERRLA, EOMI, conjunctiva normal, no discharge. Photophobia [] Neck: Normal range of motion, no tenderness, supple, no stridor. [] Cardiovascular:Heart rate regular rhythm, no murmur [] Lungs & Thorax: Bilateral breath sounds clear to auscultation [] Abdomen: Bowel sounds normal, soft, no tenderness, no masses, no pulsatile masses. [] Skin: Warm, dry, no erythema, no rash. [] Back: No tenderness, no CVA tenderness. [] Extremities: No tenderness, no cyanosis, no clubbing, ROM intact, no edema. [] Neurologic: Alert and oriented X 3, normal motor function, normal sensory function, no focal deficits noted. [] Psychologic: Affect normal, judgement normal, mood normal. [] Current Patient Data: Labs: Laboratory Tests Test 03/06/21 18:55 03/06/21 19:03 03/06/21 19:05 Urine Collection Type Unknown Urine Color Yellow Urine Clarity Clear Urine pH 8.5 Urine Specific [place] 1.020 Urine Protein Neg (NEG-TRACE) Urine Glucose (UA) Neg mg/dL (NEG) Urine Ketones (Stick) Neg mg/dL (NEG) Urine Blood Mod (NEG) Urine Nitrite Neg (NEG) Urine Bilirubin Neg (NEG) Urine Urobilinogen Dipstick 0.2 mg/dL (0.2 mg/dL) Urine Leukocyte Esterase Neg (NEG) Urine RBC 3-5 /HPF (0-2) Urine WBC Rare /HPF (0-4) Urine Squamous Epithelial Cells Mod /LPF Urine Bacteria Few /HPF (0-FEW) POC Urine HCG, Qualitative hcg negative (Negative) White Blood Count 9.0 x10^3/uL (4.0-11.0) Red Blood Count 4.41 x10^6/uL (3.50-5.40) Hemoglobin 10.4 g/dL (12.0-15.5) L Hematocrit 32.7 % (36.0-47.0) L Mean Corpuscular Volume 74 fL (79-100) L Mean Corpuscular Hemoglobin 24 pg (25-35) L Mean Corpuscular Hemoglobin Concent 32 g/dL (31-37) Red Cell Distribution Width 16.1 % (11.5-14.5) H Platelet Count 384 x10^3/uL (140-400) Neutrophils (%) (Auto) 53 % (31-73) Lymphocytes (%) (Auto) 36 % (24-48) Monocytes (%) (Auto) 8 % (0-9) Eosinophils (%) (Auto) 2 % (0-3) Basophils (%) (Auto) 1 % (0-3) Neutrophils # (Auto) 4.7 x10^3uL (1.8-7.7) Lymphocytes # (Auto) 3.2 x10^3/uL (1.0-4.8) Monocytes # (Auto) 0.7 x10^3/uL (0.0-1.1) Eosinophils # (Auto) 0.2 x10^3/uL (0.0-0.7) Basophils # (Auto) 0.1 x10^3/uL (0.0-0.2) Sodium Level 144 mmol/L (136-145) Potassium Level 3.6 mmol/L (3.5-5.1) Chloride Level 106 mmol/L (98-107) Carbon Dioxide Level 28 mmol/L (21-32) Anion Gap 10 (6-14) Blood Urea Nitrogen 12 mg/dL (7-20) Creatinine 0.6 mg/dL (0.6-1.0) Estimated GFR (Cockcroft-Gault) 120.8 BUN/Creatinine Ratio 20 (6-20) Glucose Level 93 mg/dL (70-99) Calcium Level 8.8 mg/dL (8.5-10.1) Total Bilirubin 0.2 mg/dL (0.2-1.0) Aspartate Amino Transferase (AST) 15 U/L (15-37) Alanine Aminotransferase (ALT) 31 U/L (14-59) Alkaline Phosphatase 104 U/L (46-116) Total Protein 7.6 g/dL (6.4-8.2) Albumin 3.4 g/dL (3.4-5.0) Albumin/Globulin Ratio 0.8 (1.0-1.7) L Vital Signs: Vital Signs Date Time Temp Pulse Resp B/P (MAP) Pulse Ox O2 Delivery O2 Flow Rate FiO2 03/06/21 18:23 98.2 100 18 147/81 (103) 99 Room Air EKG: EKG: [] Radiology/Procedures: Radiology/Procedures: [] Impressions: CT HEAD/BRAIN WO Date: 03/06/2021 8:15 PM Clinical Indication: Reason: MIGRAINE. NO TRAUMA / Spl. Instructions: / History: Comparison: 12/01/2020. Technique: 5 mm axial tomographic images were obtained of the head without contrast. These were viewed on brain and bone windows. One or more of the following dose reduction techniques were utilized: Automated exposure control (AEC), Adjustment of mA and/or kV according to patient size, Use of iterative reconstruction technique such as ASiR, CT scan done according to ALARA and image gently/image wisely Findings: The brain parenchyma is normal in attenuation. No intra- or extra-axial mass or fluid collection. No acute hemorrhage. Dilatation of the lateral and third ventricles, similar to the prior. The de la rosa-white matter junction is normal. The subarachnoid cisterns are patent. Left maxillary sinus mucus retention cyst. The visualized portions of the orbits and globes are normal. The mastoid air cells are clear. Mild crowding of the foramen magnum by the cerebellar tonsils. Impression: 1. No acute infarct or hemorrhage. 2. Unchanged dilated ventricles. Electronically signed by: Omega Chanel MD (03/06/2021 8:31 PM) [facility] DICTATED AND SIGNED BY: OMEGA CHANEL MD DATE: 03/06/212027 CC: KING TORREZ DO; PCP,NO ~MTH0 0 Heart Score: C/O Chest Pain: N/A Risk Factors: Risk Factors: DM, Current or recent (<one month) smoker, HTN, HLP, family history of CAD, obesity. Risk Scores: Score 0 - 3: 2.5% MACE over next 6 weeks - Discharge Home Score 4 - 6: 20.3% MACE over next 6 weeks - Admit for Clinical Observation Score 7 - 10: 72.7% MACE over next 6 weeks - Early Invasive Strategies Course & Med Decision Making: Course & Med Decision Making Pertinent Labs and Imaging studies reviewed. (See chart for details) Given patient a liter normal saline, 30 mg of Toradol, 20 mg of Benadryl, 10 mg of Reglan. Her head CT is negative for acute findings. She has a known dilated ventricles. Patient is already aware of this. The patient is feeling much better at this time she is ready go home. She is stable for discharge. [] Dragon Disclaimer: Dragon Disclaimer: This electronic medical record was generated, in whole or in part, using a voice recognition dictation system. Departure Departure: Impression: Primary Impression: Migraine Disposition: HOME / SELF CARE / HOMELESS Condition: IMPROVED Referrals: PCP,BANDAR (PCP) KING TORREZ DO March 06, 2021 20:43
== END 2021-03-06 22:10 | disposition home or self-care (01) ==
LOC: ER 18:13
DX: G43.909 Migraine, unspecified, not intractable, without status migrainosus (principal); Z90.49 Acquired absence of other specified parts of digestive tract
CPT/HCPCS: 36415; 70450; 80053; 81001; 81025; 85025; 96360; 99284; J7030

== ENCOUNTER 2021-03-18 08:58 | Emergency (ER) | payer OTHER ==
[~2021-03-18] VITALS: Ht 152.4 cm; Wt 88.0 kg
[2021-03-18 09:02] VITALS: BP 136/74
--- NOTE | 2021-03-18 09:05 | PHYS DOC ---
Past History Past Medical History: Seizure Past Surgical History: Cholecystectomy, , Tonsillectomy Additional Past Surgical Histo: ARM SURGERY Smoking: Non-smoker Alcohol Use: None Drug Use: None Adult General Chief Complaint Chief Complaint: NAUSEA/VOMITING/[facility] HPI Patient is a 25-year-old female presenting via EMS for nausea. Patient reports waking up approximately 15 minutes prior to arrival and experiencing nausea prompting her to call EMS. She has no known inciting event, trauma or concerning p.o. ingestion. Reports history of seizures for which she takes Keppra daily, last seizure was "years ago". Has no other medical diagnoses, takes no medications on a daily basis, has not followed up in outpatient setting with primary care in recent months for continuity of care. She has no sick contacts, reports she has had no concerning p.o. ingestions and has been at baseline health without any fever or URI-like symptoms recently. Besides isolated nausea, she has no other complaints. Nonetheless, patient's nausea concerned her and she did not have anything at home to take for this prompting her to call EMS for transport to our facility Review of Systems Review of Systems Fourteen body systems of review of systems have been reviewed. See HPI for pertinent positives and negative responses, other randall all other systems are negative, non-pertinent or non-contributory Allergies Allergies Allergies Coded Allergies Type Severity Reaction Last Updated Verified No Known Drug Allergies 12/01/20 No Physical Exam Physical Exam Constitutional: Well developed, no acute distress, nontoxic appearance, malodorous, poor hygiene overall HENT: Normocephalic, atraumatic, bilateral external ears normal, oropharynx dry with poor dentition, no oral exudates, nose normal with mild clear nasal dis charge present in bilateral nostrils. Eyes: PERRLA, EOMI, conjunctiva normal, no discharge. Neck: Normal range of motion, no tenderness, supple, no stridor. Cardiovascular: Heart rate regular, sinus rhythm, no murmurs rubs or gallops Lungs & Thorax: Bilateral breath sounds clear to auscultation Abdomen: Bowel sounds normal, soft, no tenderness, no masses, no pulsatile masses. Nonsurgical abdomen, no peritoneal signs Skin: Warm, dry, no erythema, no rash. Back: No tenderness, no CVA tenderness. Extremities: No tenderness, no cyanosis, no clubbing, ROM intact, no edema. Neurologic: Alert and oriented X 3, grossly normal motor & sensory function, no focal deficits noted. Psychologic: Flat affect, judgement normal, mood normal. Current Patient Data Vital Signs Vital Signs Date Time Temp Pulse Resp B/P (MAP) Pulse Ox O2 Delivery O2 Flow Rate FiO2 03/18/21 09:02 97.5 112 16 136/74 (94) 100 Room Air Vital Signs Date Time Temp Pulse Resp B/P (MAP) Pulse Ox O2 Delivery O2 Flow Rate FiO2 03/18/21 09:02 97.5 112 16 136/74 (94) 100 Room Air Lab Results Laboratory Tests Test 03/18/21 09:00 03/18/21 09:10 03/18/21 09:36 03/18/21 10:20 White Blood Count 12.3 x10^3/uL Red Blood Count 4.57 x10^6/uL Hemoglobin 10.8 g/dL Hematocrit 34.0 % Mean Corpuscular Volume 74 fL Mean Corpuscular Hemoglobin 24 pg Mean Corpuscular Hemoglobin Concent 32 g/dL Red Cell Distribution Width 15.9 % Platelet Count 413 x10^3/uL Neutrophils (%) (Auto) 50 % Lymphocytes (%) (Auto) 41 % Monocytes (%) (Auto) 6 % Eosinophils (%) (Auto) 2 % Basophils (%) (Auto) 1 % Neutrophils # (Auto) 6.1 x10^3uL Lymphocytes # (Auto) 5.0 x10^3/uL Monocytes # (Auto) 0.7 x10^3/uL Eosinophils # (Auto) 0.3 x10^3/uL Basophils # (Auto) 0.1 x10^3/uL Glucose (Fingerstick) 127 mg/dL Sodium Level 139 mmol/L Potassium Level 3.6 mmol/L Chloride Level 105 mmol/L Carbon Dioxide Level 26 mmol/L Anion Gap 8 Blood Urea Nitrogen 10 mg/dL Creatinine 0.6 mg/dL Estimated GFR (Cockcroft-Gault) 120.8 BUN/Creatinine Ratio 17 Glucose Level 104 mg/dL Lactic Acid Level 1.5 mmol/L Calcium Level 8.3 mg/dL Total Bilirubin 0.3 mg/dL Aspartate Amino Transf (AST/SGOT) 16 U/L Alanine Aminotransferase (ALT/SGPT) 23 U/L Alkaline Phosphatase 88 U/L Total Protein 7.4 g/dL Albumin 3.2 g/dL Albumin/Globulin Ratio 0.8 Urine Collection Type Unknown Urine Color Yellow Urine Clarity Hazy Urine pH 6.5 Urine Specific Cubero 1.020 Urine Protein Neg Urine Glucose (UA) Neg mg/dL Urine Ketones (Stick) Neg mg/dL Urine Blood Trace Urine Nitrite Neg Urine Bilirubin Neg Urine Urobilinogen Dipstick 0.2 mg/dL Urine Leukocyte Esterase Small Urine RBC 1-2 /HPF Urine WBC 11-20 /HPF Urine Bacteria Mod /HPF Urine Opiates Screen Neg Urine Methadone Screen Neg Urine Barbiturates Neg Urine Phencyclidine Screen Neg Urine Amphetamine/Methamphetamine Neg Urine Benzodiazepines Screen Neg Urine Cocaine Screen Neg Urine Cannabinoids Screen Neg Urine Ethyl Alcohol Test 03/18/21 10:27 Bedside Urine HCG, Qualitative hcg negative Current Medications Medications (Trade) Dose Ordered Sig/Annabelle Route PRN Reason Start Time Stop Time Status Last Admin Dose Admin Ondansetron HCl (Zofran) 4 mg STK-MED ONCE .ROUTE 03/18/21 09:07 03/18/21 09:07 DC Ondansetron HCl (Zofran) 4 mg 1X ONCE IVP 03/18/21 09:15 03/18/21 09:26 DC 03/18/21 09:11 Sodium Chloride 1,000 ml @ 1,000 mls/hr 1X ONCE IV 03/18/21 09:15 03/18/21 10:14 DC 03/18/21 09:15 EKG EKG EKG ordered and interpreted by myself at 0915 hrs. as sinus rhythm at 97 bpm, unremarkable intervals, no axis deviation, no acute ischemic findings, no STEMI Radiology/Procedures Radiology/Procedures [] Heart Score C/O Chest Pain: No HEART Score for Chest Pain: HEART Score for Chest Pain Response (Comments) Value History Slighlty/Non-Suspicious 0 ECG Normal 0 Age < 45 0 Risk Factors No Risk Factors 0 Total 0 Risk Factors: Risk Factors: DM, Current or recent (<one month) smoker, HTN, HLP, family history of CAD, obesity. Risk Scores: Risk Factors: DM, Current or recent (<one month) smoker, HTN, HLP, family history of CAD, obesity. Course & Med Decision Making Course & Med Decision Making Vital signs stable. HPI, physical exam and ER work-up nonconcerning for emergent or surgical issues Patient responded to ER intervention that included IV fluid rehydration and IV Zofran I reviewed entirety of ER course. Patient asymptomatic on numerous repeat evaluations. Discussed little indication for further diagnostic work-up while in ER setting. Discussed likely diagnosis of gastroenteritis versus other self- limiting condition Joint decision made given patient's asymptomatic state to discharge home with close PCP follow-up. I will be sending patient home with antiemetic for as needed use. I recommended COVID-19 swab but patient deferred Strict return precautions discussed with good understanding by patient. All questions and concerns addressed prior to your departure in improved condition Dragon Disclaimer Dragon Disclaimer This electronic medical record was generated, in whole or in part, using a voice recognition dictation system. Departure Departure: Impression: Primary Impression: Nausea Disposition: HOME / SELF CARE / HOMELESS Condition: IMPROVED Referrals: PCP,BANDAR (PCP) Patient Instructions: Nausea, Adult Additional Instructions: You were seen for nausea. You most likely have a viral illness which should r esolve in the next few days to a week. You should return to the ED if you develop abdominal pain, fever > 100.3, black/bloody stools, black/bloody vomiting, cannot keep water down, or any other new or concerning symptoms. Scripts Ondansetron Hcl (ZOFRAN) 4 Mg Tablet 1 TAB PO Q8HRS for NAUSEA, #15 TAB Prov: JAZZY ALBA DO 03/18/21 JAZZY ALBA DO March 18, 2021 09:05
[2021-03-18] MEDS ORDERED: ONDANSETRON PF 4 MG/2 ML VIAL. ONE (09:07)
[2021-03-18] MEDS ORDERED: IV NORMAL SALINE 1,000ML 1,000 ML IV ONE (09:15)
[2021-03-18] MEDS ORDERED: ONDANSETRON PF 4 MG/2 ML VIAL. IVP ONE (09:15)
[2021-03-18 09:44] LABS: BASO # 0.1 x10^3/uL (0.0-0.2); BASO % 1 % (0-3); EOS # 0.3 x10^3/uL (0.0-0.7); EOS % 2 % (0-3); HEMOGLOBIN 10.8 g/dL (12.0-15.5); LYMPH % 41 % (24-48); MEAN CORPUSCULAR HEMOGLOBIN 24 pg (25-35); MEAN CORPUSCULAR HGB CONC 32 g/dL (31-37); MEAN CORPUSCULAR VOLUME 74 fL (79-100); MONO # 0.7 x10^3/uL (0.0-1.1); MONO % 6 % (0-9); NEUT # 6.1 x10^3uL (1.8-7.7); NEUT % 50 % (31-73); PLATELET COUNT 413 x10^3/uL (140-400); RED BLOOD COUNT 4.57 x10^6/uL (3.50-5.40); RED CELL DISTRIBUTION WIDTH 15.9 % (11.5-14.5); WHITE BLOOD COUNT 12.3 x10^3/uL (4.0-11.0)
[2021-03-18 10:03] LABS: ALBUMIN 3.2 g/dL (3.4-5.0); ALBUMIN/GLOBULIN RATIO 0.8 (1.0-1.7); CALCIUM 8.3 mg/dL (8.5-10.1); CREATININE 0.6 mg/dL (0.6-1.0); GFR 120.8; POTASSIUM 3.6 mmol/L (3.5-5.1); TOTAL BILIRUBIN 0.3 mg/dL (0.2-1.0); TOTAL PROTEIN 7.4 g/dL (6.4-8.2)
[2021-03-18 10:42] LABS: BARBITURATES NEG (NEG); BENZODIAZEPINES NEG (NEG); CANNABINOIDS NEG (NEG); COCAINE NEG (NEG); METHADONE NEG (NEG); OPIATES NEG (NEG); PHENCYCLIDINE NEG (NEG)
[2021-03-18 10:43] LABS: AMPHETAMINE/METHAMPHETAMINE NEG (NEG)
[2021-03-18 10:45] LABS: BILIRUBIN,URINE NEG (NEG); CLARITY,URINE HAZY; COLOR,URINE YELLOW; GLUCOSE,URINE NEG (NEG)
[2021-03-18 10:46] LABS: NITRITE,URINE NEG (NEG); UROBILINOGEN,URINE 0.2 mg/dL (0.2 mg/dL)
[2021-03-18 10:48] LABS: BACTERIA,URINE MOD /HPF (0-FEW)
[2021-03-18] MEDS ORDERED: ONDA4TAB7 PO (10:55)
--- NOTE | 2021-03-18 12:28 | EKG ---
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
== END 2021-03-18 11:00 | disposition home or self-care (01) ==
LOC: ER 08:58
DX: R11.0 Nausea (principal); Z90.49 Acquired absence of other specified parts of digestive tract
CPT/HCPCS: 36415; 80053; 80307; 81001; 81025; 82947; 83605; 85025; 87086; 93005; 96361; 96374; 99284; J2405; J7030

== ENCOUNTER 2021-10-28 14:19 | Emergency (ER) | payer OTHER ==
[~2021-10-28] VITALS: Ht 152.4 cm; Wt 107.5 kg
[~2021-10-28 14:19] MED LIST changes: +ONDA4TAB7 PO
--- NOTE | 2021-10-28 14:53 | PHYS DOC ---
Past History Past Medical History: Seizure (KASI QUESADA MD) Past Surgical History: Appendectomy, Cholecystectomy, Additional Past Surgical Histo: ARM SURGERY (KASI QUESADA MD) Smoking: Non-smoker Alcohol Use: None Drug Use: None (KASI QUESADA MD) General Adult EDM: Chief Complaint: CHEST PAIN HPI: HPI: Patient is a 26-year-old female coming in for substernal chest pain that radiates to her epigastric area. Patient states that pain is "stabbing". Has been going on for about a week and only happens after she eats, it does not have the pain when drinks. Has taken Tums before and it relieved the pain. Denies any cough, vomiting, or diarrhea. History of cholecystectomy (KASI QUESADA MD) Review of Systems: Review of Systems: All other systems within normal limits except for as noted in the HPI (KASI QUESADA MD) Allergies: Allergies: Allergies Coded Allergies Type Severity Reaction Last Updated Verified No Known Drug Allergies 12/01/20 No (KASI QUESADA MD) Physical Exam: PE: Constitutional: Well developed, well nourished, no acute distress, non-toxic appearance. [] HENT: Normocephalic, atraumatic, bilateral external ears normal, nose normal. [] Eyes: PERRLA, conjunctiva normal, no discharge. [] Neck: No rigidity, supple, no stridor. [] Cardiovascular: Regular rate and rhythm, brisk cap refill [] Lungs & Thorax: Non labored symmetric respirations, no tachypnea or respiratory distress [] Abdomen: Soft, nondistended. Skin: Warm, dry, no erythema, no rash. [] Back: Unremarkable Extremities: No deformities, range of motion grossly intact, no lower extremity edema [] Neurologic: Alert and oriented X 3, no focal deficits noted. [] Psychologic: Affect normal, judgement normal, mood normal. [] (KASI QUESADA MD) Current Patient Data: Vital Signs: Vital Signs Date Time Temp Pulse Resp B/P (MAP) Pulse Ox O2 Delivery O2 Flow Rate FiO2 10/28/21 14:33 98.3 107 16 131/77 (95) 99 Room Air (KASI QUESADA MD) EKG: EKG: Sinus tachycardia, heart rate 106 bpm, normal axis, no ST elevation or depression, no ectopy [] (KASI QUESADA MD) Radiology/Procedures: Radiology/Procedures: [] (KASI QUESADA MD) Impressions: CT THORAX WITH IV contrast History: Chest pain Technique: CT of the chest was performed with intravenous contrast. Coronal and sagittal reconstructions were performed. Exposure: One or more of the following individualized dose reduction techniques were utilized for this examination: 1. Automated exposure control 2. Adjustment of the mA and/or kV according to patient size 3. Use of iterative reconstruction technique. Comparison: None FINDINGS: LUNGS/PLEURA: The pulmonary parenchyma appears within normal limits. There is a mosaic attenuation of bilateral lower lobes, nonspecific can be seen in the setting of small airway disease. No suspicious pulmonary nodules are visualized. No pleural effusion or focal pleural lesion. MEDIASTINUM: No pathologic mediastinal or hilar adenopathy. Calcified right hilar lymph nodes. The thoracic aorta and pulmonary arteries are normal in caliber. The heart is normal in size. No pericardial effusion. No detectable calcified coronary atherosclerosis. There is a 1.6 cm heterogenous nodule in the left thyroid gland with coarse peripheral calcification. Mild distal esophageal wall thickening may relate to reflux dysphagia process. AXILLA/SOFT TISSUE: No supraclavicular or axillary adenopathy. Regional soft tissues are within normal limits. OSSEOUS: No acute or suspicious osseous abnormalities. S-shaped curvature of the thoracolumbar spine. ABDOMEN: The visualized portions of the upper abdomen are unremarkable. Gallbladder is absent. IMPRESSION: 1. Mosaic attenuation of bilateral lower lobes, nonspecific can be seen in the setting of small airway disease. 2. 1.6 cm heterogenous nodule in the left thyroid gland. Correlation with endocrine function and follow-up with nonemergent ultrasound. 3.Mild distal esophageal wall thickening may relate to reflux dysphagia process. Electronically signed by: Fredy Reeder DO (10/28/2021 5:56 PM) [facility] DICTATED AND SIGNED BY: FREDY REEDER DO DATE: 10/28/21 174 CC: KASI QUESADA MD; PCP,NO ~MTH0 0 (KING TORREZ DO) Heart Score: C/O Chest Pain: Yes HEART Score for Chest Pain: HEART Score for Chest Pain Response (Comments) Value History Slighlty/Non-Suspicious 0 ECG Normal 0 Age < 45 0 Risk Factors 1 or 2 Risk Factors 1 Troponin < Normal Limit 0 Total 1 Risk Factors: Risk Factors: DM, Current or recent (<one month) smoker, HTN, HLP, family history of CAD, obesity. Risk Scores: Score 0 - 3: 2.5% MACE over next 6 weeks - Discharge Home Score 4 - 6: 20.3% MACE over next 6 weeks - Admit for Clinical Observation Score 7 - 10: 72.7% MACE over next 6 weeks - Early Invasive Strategies (KASI QUESADA MD) Course & Med Decision Making: Course & Med Decision Making Pertinent Labs and Imaging studies reviewed. (See chart for details) Pending radiology results at shift change, pain-free while emergency department. [] (KASI QUESADA MD) Course & Med Decision Making The patient's CT scan suggest possible small area of disease. There is also 1.6 cm nodule in left thyroid gland. Finally there is some distal esophageal wall thickening which may be reflux dysphagia. See official read for more details. I treated the patient with 20 of Pepcid and 40 of Protonix. I have advised that she do a 30-day course of Protonix 40 mg daily to help treat her reflux. This is likely the source of her discomfort. She is stable for discharge at this time. (KING TORREZ DO) Dragon Disclaimer: Dragon Disclaimer: This electronic medical record was generated, in whole or in part, using a voice recognition dictation system. (KASI QUESADA MD) Departure Departure: Impression: Primary Impression: GERD with esophagitis Disposition: HOME / SELF CARE / HOMELESS Condition: STABLE Referrals: PCP,NO (PCP) Patient Instructions: Gastroesophageal Reflux Disease, Adult, Dqft-[id number] Scripts Pantoprazole Sodium (PROTONIX) 40 Mg Tablet. 1 TAB PO DAILY for GERD, #30 TAB 0 Refills Prov: KING TORREZ DO 10/28/21 KASI QUESADA MD Oct 28, 2021 14:53 KING TORREZ DO Oct 28, 2021 18:22
--- NOTE | 2021-10-28 15:03 | EKG ---
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
[2021-10-28 16:16] LABS: BASO # 0.1 x10^3/uL (0.0-0.2); BASO % 1 % (0-3); EOS # 0.2 x10^3/uL (0.0-0.7); EOS % 2 % (0-3); HEMATOCRIT 37.6 % (36.0-47.0); HEMOGLOBIN 11.8 g/dL (12.0-15.5); LYMPH # 3.9 x10^3/uL (1.0-4.8); LYMPH % 35 % (24-48); MEAN CORPUSCULAR HEMOGLOBIN 24 pg (25-35); MEAN CORPUSCULAR HGB CONC 32 g/dL (31-37); MEAN CORPUSCULAR VOLUME 77 fL (79-100); MONO # 0.8 x10^3/uL (0.0-1.1); MONO % 7 % (0-9); NEUT % 55 % (31-73); PLATELET COUNT 394 x10^3/uL (140-400); RED BLOOD COUNT 4.85 x10^6/uL (3.50-5.40); RED CELL DISTRIBUTION WIDTH 15.4 % (11.5-14.5)
[2021-10-28 16:43] LABS: BACTERIA,URINE FEW /HPF (0-FEW); BILIRUBIN,URINE NEG (NEG); CLARITY,URINE CLEAR; COLOR,URINE YELLOW; GLUCOSE,URINE NEG (NEG); NITRITE,URINE NEG (NEG); RBC,URINE 0 /HPF (0-2); SQUAMOUS EPITHELIAL CELL,UR FEW /LPF; UROBILINOGEN,URINE 0.2 mg/dL (0.2 mg/dL); WBC,URINE OCC /HPF (0-4)
[2021-10-28 16:44] LABS: CALCIUM 8.6 mg/dL (8.5-10.1); CREATININE 0.9 mg/dL (0.6-1.0); GFR 75.1; POTASSIUM 4.3 mmol/L (3.5-5.1)
[2021-10-28 16:49] LABS: ALBUMIN 3.4 g/dL (3.4-5.0); ALBUMIN/GLOBULIN RATIO 0.8 (1.0-1.7); TOTAL BILIRUBIN 0.3 mg/dL (0.2-1.0); TOTAL PROTEIN 7.9 g/dL (6.4-8.2)
[2021-10-28] MEDS ORDERED: IOHEXOL 300 MG/ML 75 ML VIAL. IV ONE (17:15)
--- NOTE | 2021-10-28 17:59 | RAD ---
CT THORAX WITH IV contrast History: Chest pain Technique: CT of the chest was performed with intravenous contrast. Coronal and sagittal reconstructi ons were performed. Exposure: One or more of the following individualized dose reduction techniques were utilized for thi s examination: 1. Automated exposure control 2. Adjustment of the mA and/or kV according to patient size 3. Use of iterative reconstruction technique. Comparison: None FINDINGS: LUNGS/PLEURA: The pulmonary parenchyma appears within normal limits. There is a mosaic attenuation of bilateral lower lobes, nonspecific can be seen in the setting of small airway disease. No suspicious pulmonary nodules are visualized. No pleural effusion or focal pleural lesion. MEDIASTINUM: No pathologic mediastinal or hilar adenopathy. Calcified right hilar lymph nodes. The th oracic aorta and pulmonary arteries are normal in caliber. The heart is normal in size. No pericardia l effusion. No detectable calcified coronary atherosclerosis. There is a 1.6 cm heterogenous nodule in the left thyroid gland with coarse peripheral calcification . Mild distal esophageal wall thickening may relate to reflux dysphagia process. AXILLA/SOFT TISSUE: No supraclavicular or axillary adenopathy. Regional soft tissues are within george l limits. OSSEOUS: No acute or suspicious osseous abnormalities. S-shaped curvature of the thoracolumbar spine. ABDOMEN: The visualized portions of the upper abdomen are unremarkable. Gallbladder is absent. IMPRESSION: 1. Mosaic attenuation of bilateral lower lobes, nonspecific can be seen in the setting of small airwa y disease. 2. 1.6 cm heterogenous nodule in the left thyroid gland. Correlation with endocrine function and foll ow-up with nonemergent ultrasound. 3.Mild distal esophageal wall thickening may relate to reflux dysp hagia process. Electronically signed by: Fredy Butler DO (10/28/2021 5:56 PM) [facility]
[2021-10-28 18:25] VITALS: BP 118/80
[2021-10-28] MEDS ORDERED: PANT40TA3 PO (18:27)
[2021-10-28] MEDS ORDERED: PANTOPRAZOLE IV 40 MG VIAL. IVP ONE (18:30)
[2021-10-28] MEDS ORDERED: FAMOTIDINE 20 MG/2 ML VIAL IVP ONE (18:30)
== END 2021-10-28 18:33 | disposition home or self-care (01) ==
LOC: ER 14:19
DX: K21.00 Gastro-esophageal reflux disease with esophagitis, without bleeding (principal); Z90.89 Acquired absence of other organs; Z90.49 Acquired absence of other specified parts of digestive tract; Z98.890 Other specified postprocedural states
CPT/HCPCS: 36415; 71260; 80053; 81001; 81025; 83690; 84484; 85025; 85379; 93005; 96374; 96375; 99285; C9113; J3490; Q9967

== ENCOUNTER 2022-01-01 14:08 | Emergency (ER) | payer OTHER ==
[~2022-01-01] VITALS: Ht 152.4 cm; Wt 106.4 kg
[~2022-01-01 14:08] MED LIST changes: +PANT40TA3 PO
[2022-01-01] MEDS ORDERED: LIDOCAINE/EPI/TETRACAINE TOPICAL GEL 3 ML. TP ONE (14:30)
[2022-01-01] MEDS ORDERED: ONDANSETRON ODT 4 MG TAB.RAPDIS PO ONE (14:30)
--- NOTE | 2022-01-01 14:34 | PHYS DOC ---
Past History Past Medical History: Seizure Past Surgical History: Appendectomy, Cholecystectomy, Additional Past Surgical Histo: ARM SURGERY Smoking: Non-smoker Alcohol Use: None Drug Use: None General Adult EDM: Chief Complaint: MECHANICAL FALL HPI: HPI: Patient is a 26-year-old female coming in after she slipped on ice and fell and hit the left side of her head. Patient thinks she lost consciousness but unsure of how long. Falls witnessed by her boyfriend. Patient is complaining of nausea but has not vomited. Denies any neck pain or vision changes. Patient's tetanus is up-to-date. Review of Systems: Review of Systems: All other systems within normal limits except for as noted in the HPI Current Medications: Current Meds: Current Medications Medications (Trade) Dose Ordered Sig/Annabelle Start Time Stop Time Status Last Admin Dose Admin Lidocaine/ Epinephrine (Let (Aesi-Mzqlygl-Csuaw) Gel) 3 ml 1X ONCE 01/01/22 14:30 01/01/22 14:31 UNV Ondansetron HCl (Zofran Odt) 4 mg 1X ONCE 01/01/22 14:30 01/01/22 14:31 Allergies: Allergies: Allergies Coded Allergies Type Severity Reaction Last Updated Verified No Known Drug Allergies 12/01/20 No Physical Exam: PE: Constitutional: Well developed, well nourished, no acute distress, non-toxic appearance. [] HENT: Normocephalic, atraumatic, bilateral external ears normal, nose normal. [] Eyes: PERRLA, conjunctiva normal, no discharge. [] Neck: No rigidity, supple, no stridor. No tenderness palpation [] Cardiovascular: Regular rate and rhythm, brisk cap refill [] Lungs & Thorax: Non labored symmetric respirations, no tachypnea or respiratory distress [] Abdomen: Soft, nondistended. Skin: Warm, dry, no erythema, no rash. 1 similar laceration to left parietal scalp [] Back: Unremarkable Extremities: No deformities, range of motion grossly intact, no lower extremity edema. No test palpation on upper or lower extremity [] Neurologic: Alert and oriented X 3, no focal deficits noted. [] Psychologic: Affect normal, judgement normal, mood normal. [] EKG: EKG: [] Radiology/Procedures: Radiology/Procedures: [address] [address] IMAGING REPORT Signed PATIENT: JUAN KYLE ACCOUNT: [id number] : 1995 LOCATION: ER AGE: 26 SEX: F EXAM STATUS: REG ER ORD. PHYSICIAN: KASI QUESADA MD REASON: fall, left head injury PROCEDURE: CT HEAD WO CONTRAST PQRS Compliance Statement: One or more of the following individualized dose reduction techniques were utilized for this examination: 1. Automated exposure control 2. Adjustment of the mA and/or kV according to patient size 3. Use of iterative reconstruction technique CT HEAD WITHOUT CONTRAST History: Reason: fall, left head injury / Spl. Instructions: / History: Comparison: None. Procedure: Axial images are obtained of the head from the skull base through the vertex without IV contrast. Findings: Ventriculomegaly of the lateral and third ventricles is unchanged. No mass-effect, midline shift, hemorrhage, extra-axial fluid collection, or obvious acute infarction is identified. Basilar cisterns are patent. Bone windows demonstrate no acute calvarial abnormality. There is unchanged mild crowding of the foramen magnum by the cerebellar tonsils. There is mucosal thickening of the bilateral ethmoid sinuses. There is no air- fluid level. Mastoid air cells are well aerated. IMPRESSION: 1. No acute intracranial abnormality. 2. There is unchanged ventriculomegaly of the lateral and third ventricles. Electronically signed by: Justin Clemons MD (01/01/2022 3:03 PM) [id number] DICTATED AND SIGNED BY: JUSTIN CLEMONS MD DATE: 01/01/22 1457 CC: KASI QUESADA MD; MALLORY VILLEGAS DO ~MTH0 0 Patient was prepped and draped in normal fashion, wound irrigated and cleansed with normal saline. The 1.5 cm wound was anesthetized with lidocaine 2% with epinephrine. Depth of wound was examined and no foreign bodies found. Wound was approximated with 3 kaley. Wound was [] dressed a nonadherent bandage Heart Score: C/O Chest Pain: No Risk Factors: Risk Factors: DM, Current or recent (<one month) smoker, HTN, HLP, family history of CAD, obesity. Risk Scores: Score 0 - 3: 2.5% MACE over next 6 weeks - Discharge Home Score 4 - 6: 20.3% MACE over next 6 weeks - Admit for Clinical Observation Score 7 - 10: 72.7% MACE over next 6 weeks - Early Invasive Strategies Course & Med Decision Making: Course & Med Decision Making Pertinent Labs and Imaging studies reviewed. (See chart for details) [] Dragon Disclaimer: Dragon Disclaimer: This electronic medical record was generated, in whole or in part, using a voice recognition dictation system. Departure Departure: Impression: Primary Impression: Fall due to slipping on ice or snow Additional Impression: Scalp laceration Disposition: HOME / SELF CARE / HOMELESS Condition: STABLE Referrals: MALLORY VILLEGAS DO (PCP) Patient Instructions: Staple Wound Closure, [id number] Additional Instructions: Return in 10 to 14 days for staple removal Scripts Ondansetron (ONDANSETRON ODT) 4 Mg Tab.rapdis 1 TAB PO PRN Q6-8HRS PRN for NAUSEA, #10 TAB Prov: KASI QUESADA MD 01/01/22 KASI QUESADA MD Jan 01, 2022 14:34
[2022-01-01] MEDS ORDERED: LIDOCAINE 2%/EPI 1:100,000 20 ML VIAL. IJ ONE (14:45)
--- NOTE | 2022-01-01 15:05 | RAD ---
RS Compliance Statement: One or more of the following individualized dose reduction techniques were utilized for this examinat ion: 1. Automated exposure control 2. Adjustment of the mA and/or kV according to patient size 3. Use of iterative reconstruction technique CT HEAD WITHOUT CONTRAST History: Reason: fall, left head injury / Spl. Instructions: / History: Comparison: None. Procedure: Axial images are obtained of the head from the skull base through the vertex without IV co ntrast. Findings: Ventriculomegaly of the lateral and third ventricles is unchanged. No mass-effect, midline shift, hemorrhage, extra-axial fluid collection, or obvious acute infarction is identified. Basilar cisterns are patent. Bone windows demonstrate no acute calvarial abnormality. There is unchanged mild crowding of the fora men magnum by the cerebellar tonsils. There is mucosal thickening of the bilateral ethmoid sinuses. There is no air-fluid level. Mastoid ai r cells are well aerated. IMPRESSION: 1. No acute intracranial abnormality. 2. There is unchanged ventriculomegaly of the lateral and third ventricles. Electronically signed by: Justin Clemons MD (01/01/2022 3:03 PM) [id number]
[2022-01-01] MEDS ORDERED: ONDA4TAB12 PO (15:16)
[2022-01-01 15:20] VITALS: BP 121/80
== END 2022-01-01 15:23 | disposition home or self-care (01) ==
LOC: ER 14:08
DX: S01.01XA Laceration without foreign body of scalp, initial encounter (principal); W00.0XXA Fall on same level due to ice and snow, initial encounter; Y93.89 Activity, other specified; Y92.89 Other specified places as the place of occurrence of the external cause; Y99.8 Other external cause status
CPT/HCPCS: 12001; 70450; 99284; Q0162

== ENCOUNTER 2022-01-11 10:32 | Emergency (ER) | payer OTHER ==
--- NOTE | 2022-01-11 11:05 | PHYS DOC ---
Past History Past Medical History: Seizure (KASHIF ANTHONY) Past Surgical History: Appendectomy, Cholecystectomy, , Other Additional Past Surgical Histo: L ARM SURGERY (KASHIF ANTHONY) Smoking: Non-smoker Alcohol Use: Occasionally Drug Use: None (KASHIF ANTHONY) General Adult EDM: Chief Complaint: SUTURE/STAPLE REMOVAL HPI: HPI: Patient is a 26 year old female who presents for staple removal. Her original injury was 10 days ago. She had a mechanical fall on ice, where she suffered a laceration to the parieto-occipital region behind her right ear. At that time, CT images were negative. She has had no issues with the wound since repair. Patient has no other complaints at this time. (KASHIF ANTHONY) Review of Systems: Review of Systems: ROS negative or noncontributory except as mentioned in HPI. (KASHIF ANTHONY) Allergies: Allergies: Allergies Coded Allergies Type Severity Reaction Last Updated Verified No Known Drug Allergies 01/11/22 No (KASHIF ANTHONY) Physical Exam: PE: Constitutional: Well developed, well nourished, no acute distress, non-toxic appearance. HENT: Normocephalic, well-healing linear laceration noted to the parieto- occipital regionof the scalp behind theright ear, bilateral external ears normal, oropharynx moist, no oral exudates, nose normal. Eyes: EOMI, conjunctiva normal, no discharge. Neck: Normal range of motion, no stridor. Skin: Warm, dry, no erythema, no rash. Extremities: No cyanosis, no clubbing, ROM intact, no edema. Neurologic: Alert and oriented x4, no focal deficits noted. (KASHIF ANTHONY) Current Patient Data: Vital Signs: VS - Last 72 Hours, by Label Date Time Temp Pulse Resp B/P (MAP) Pulse Ox O2 Delivery O2 Flow Rate FiO2 01/11/22 11:10 70 18 142/70 (94) 98 Room Air (KASHIF ANTHONY) Heart Score: C/O Chest Pain: No (KASHIF ANTHONY) Course & Med Decision Making: Course & Med Decision Making Pertinent Labs and Imaging studies reviewed. (See chart for details) (KASHIF ANTHONY) Course & Med Decision Making Patients Care and treatment plan provided by SUKHDEEP DAN I was available for consult. Patient's chart reviewed. (PO PASCAL DO) Drew Disclaimer: Drew Disclaimer: This electronic medical record was generated, in whole or in part, using a voice recognition dictation system. (KASHIF ANTHONY) Suture/Staple Removal Indication: Marquis on scalp Procedure: The patient was placed in the appropriate position and the 3 marquis were removed without difficulty. Wound beneath is well approximated, well- healing, no evidence of infection. Other items: The patient tolerated the procedure very well. Complications: No complications. (KASHIF ANTHONY) Departure Departure: Impression: Primary Impression: Encounter for staple removal Disposition: HOME / SELF CARE / HOMELESS Condition: STABLE Referrals: MALLORY VILLEGAS DO (PCP) Patient Instructions: Staple Removal, Care After Additional Instructions: EMERGENCY DEPARTMENT GENERAL DISCHARGE INSTRUCTIONS Thank you for coming to [facility] (ED) today and trusting us with you care. We trust that you had a positive experience in our Emergency Department. If you wish to speak to the department management, you may call the director at [phone]. YOUR FOLLOW UP INSTRUCTIONS ARE FOLLOWS: 1. Follow up with your primary care doctor. If you do not have a primary doctor, please ask for a resource list of physicians or clinics that may be able to assist you with follow up care. 2. The emergency provider has interpreted your imaging studies, if any were ordered. The radiology medical imaging tech also reviewed them. If there is a change in the findings, you will be notified in 48 hours when at all possible. 3. If a lab test or culture has been done, your results will be reviewed and you will be notified if you need a change in treatment. 4. Follow instructions verbalized to you and refer to the printouts if needed. ADDITIONAL INSTRUCTIONS AND INFORMATION: 1. Your care today has been supervised by a physician who is specially trained in emergency care. Many problems require more than one evaluation for a complete diagnosis and treatment. We recommend that you schedule your follow up appointment as recommended to ensure complete treatment of you illness or injury. If you are unable to obtain follow up care and continue to have a problem, or if your condition worsens, we recommend that you return to the ED. 2. We are not able to safely determine your condition over the phone nor are we able to give sound medical advice over the phone. For these safety reasons, if you call for medical advice we will ask you to come to the ED for further evaluation. 3. If you have any questions regarding these discharge instructions please call the ED at [phone]. SAFETY INFORMATION: In the interest of safety, wellness, and injury prevention; we encourage you to wear your seat belt, if you smoke; quite smoking, and we encourage family to use a protective helmet for bicycling and other sporting events that present an increased risk for head injury. IF YOUR SYMPTOMS WORSEN OR NEW SYMPTOMS DEVELOP, OR YOU HAVE CONCERNS ABOUT YOUR CONDITION; OR IF YOUR CONDITION WORSENS WHILE YOU ARE WAITING FOR YOUR FOLLOW UP APPOINTMENT; EITHER CONTACT YOUR PRIMARY CARE DOCTOR, THE PHYSICIAN WHOSE NAME AND NUMBER YOU WERE GIVEN, OR RETURN TO THE ED IMMEDIATELY. KASHIF ANTHONY Jan 11, 2022 11:05 PO PASCAL DO Jan 17, 2022 00:53
[2022-01-11 11:10] VITALS: BP 142/70
== END 2022-01-11 11:10 | disposition home or self-care (01) ==
LOC: ER 10:32
DX: S01.01XD Laceration without foreign body of scalp, subsequent encounter (principal); X58.XXXD Exposure to other specified factors, subsequent encounter
CPT/HCPCS: 99281

== ENCOUNTER 2022-02-27 17:28 | Emergency (ER) | payer OTHER ==
[~2022-02-27] VITALS: Ht 152.4 cm; Wt 106.4 kg
[2022-02-27 18:10] VITALS: BP 137/72
[2022-02-27] MEDS ORDERED: METOCLOPRAMIDE HCL 10 MG/2 ML VIAL. ONE (18:43)
[2022-02-27] MEDS ORDERED: ONDANSETRON ODT 4 MG TAB.RAPDIS ONE (18:43)
[2022-02-27] MEDS: ONDANSETRON ODT 4 MG TAB.RAPDIS PO ONE (18:44)
[2022-02-27] MEDS: METOCLOPRAMIDE HCL 10 MG/2 ML VIAL. IM ONE (18:44)
--- NOTE | 2022-02-27 19:18 | RAD ---
Single view chest dated 02/27/2022 7:15 PM: COMPARISON: 08/13/2020 Clinical Indication: Cough and congestion. Findings: Single upright portable exam of the chest was performed. Heart size and mediastinal contours are with in normal limits. Lungs are clear. No consolidation or pleural effusion. No pneumothorax. IMPRESSION: No acute radiographic abnormality. Electronically signed by: Samuel Mcduffie MD (02/27/2022 7:16 PM) [facility]
--- NOTE | 2022-02-27 19:40 | PHYS DOC ---
Past History Past Medical History: Seizure Past Surgical History: Appendectomy, Cholecystectomy, , Other Additional Past Surgical Histo: L ARM SURGERY Smoking: Non-smoker Alcohol Use: Occasionally Drug Use: None Adult General Chief Complaint Chief Complaint: NAUSEA/VOMITING/DIARRHEA HPI HPI Patient is a 26-year-old female who presents with cough, nausea and vomiting for the last day. Denies any recent travels, traumas, illnesses, fevers, chest pain, shortness of breath, abdominal pain, dysuria, hematuria, blood in the stool or diarrhea. Denies any vaginal discharge, bleeding, pain or history of STIs or concern thereof. Review of Systems Review of Systems Review of systems otherwise unremarkable except noted in HPI Current Medications Current Medications Current Medications Medications (Trade) Dose Ordered Sig/Annabelle Start Time Stop Time Status Last Admin Dose Admin Metoclopramide HCl (Reglan Vial) 10 mg 1X ONCE 02/27/22 18:45 02/27/22 19:03 DC 02/27/22 18:44 10 MG Ondansetron HCl (Zofran Odt) 4 mg 1X ONCE 02/27/22 18:45 02/27/22 19:03 DC 02/27/22 18:44 4 MG Allergies Allergies Allergies Coded Allergies Type Severity Reaction Last Updated Verified No Known Drug Allergies 02/27/22 No Physical Exam Physical Exam Constitutional: Well developed, well nourished, no acute distress, non-toxic appearance. [] HENT: Normocephalic, atraumatic, bilateral external ears normal, oropharynx moist, no oral exudates, nose normal. [] Eyes: conjunctiva normal, no discharge. [] Neck: Normal range of motion, no tenderness, supple, no stridor. [] Cardiovascular: Sinus tachycardia Lungs & Thorax: No respiratory distress Abdomen: no tenderness, Skin: Warm, dry, no erythema, no rash. [] Back: no CVA tenderness. [] Extremities: No tenderness, no cyanosis, no clubbing, ROM intact, no edema. [] Neurologic: Alert and oriented X 3, able to sit, stand and walk without issue no focal deficits noted. [] Psychologic: Affect normal, judgement normal, mood normal. [] Current Patient Data Vital Signs Vital Signs Date Time Temp Pulse Resp B/P (MAP) Pulse Ox O2 Delivery O2 Flow Rate FiO2 02/27/22 18:10 99.0 112 18 137/72 (93) 98 Room Air Lab Results Laboratory Tests Test 02/27/22 18:00 POC Urine HCG, Qualitative hcg negative (Negative) EKG EKG [] Radiology/Procedures Radiology/Procedures [] Heart Score C/O Chest Pain: No Risk Factors: Risk Factors: DM, Current or recent (<one month) smoker, HTN, HLP, family history of CAD, obesity. Risk Scores: Risk Factors: DM, Current or recent (<one month) smoker, HTN, HLP, family history of CAD, obesity. Course & Med Decision Making Course & Med Decision Making Patient is a 26-year-old female presents with cough, nausea and vomiting for the last day Vital signs notable for sinus tachycardia. Physical exam noted above. Given medications for symptom control. Chest x-ray nonconcerning. Urine negative. Patient feeling better on reassessment and wanted to be discharged home. Discussed symptom management at home Given nausea medicine for home. Given a work note for tomorrow patient's request. Advised to follow-up in the morning with primary care physician Gave return precautions to the ED. Patient grateful, verbalized understanding and agreed with plan of discharge [] Dragon Disclaimer Dragon Disclaimer This electronic medical record was generated, in whole or in part, using a voice recognition dictation system. Departure Departure: Impression: Primary Impression: Nausea & vomiting Disposition: 01 HOME / SELF CARE / HOMELESS Condition: STABLE Referrals: MALLORY VILLEGAS DO (PCP) Patient Instructions: Nausea and Vomiting Additional Instructions: Thank you for coming into the emergency department tonight and allowing us to take care of you. Please read the attached information carefully go over things we discussed. Over the next couple of days eat a light clear diet and drink plenty of fluids. Please take your nausea medicine as prescribed every 6 hours to allow you to drink plenty of fluids. Please follow-up in the morning with your primary care physician update on your ED visit and set up a follow-up with soon as you can. You are given a work note for tomorrow to accomplish this. Please contact with new or concerning symptoms as discussed MARILIA SLADE MD February 27, 2022 19:40
[2022-02-27] MEDS ORDERED: ONDANSETRON 4MG ODT 4TABLET STARTPACK. PO ONE (19:58)
[2022-02-27] MEDS: ONDANSETRON 4MG ODT 4TABLET STARTPACK. PO ONE (20:00)
== END 2022-02-27 20:02 | disposition home or self-care (01) ==
LOC: ER 17:28
DX: R11.2 Nausea with vomiting, unspecified (principal); R05.9 Cough, unspecified
CPT/HCPCS: 71045; 81025; 96372; 99283; J2765; Q0162

== ENCOUNTER 2022-03-01 14:21 | Emergency (ER) | payer OTHER ==
[~2022-03-01] VITALS: Ht 152.4 cm; Wt 63.6 kg
--- NOTE | 2022-03-01 15:09 | RAD ---
Single AP view of the chest. Comparison: 02/27/2022. Indication: Cough and congestion Findings: The heart is not enlarged. There is no pneumothorax or effusion. No air space or interstitial diseas e. Impression: 1. No acute cardiopulmonary process. Electronically signed by: Tereso Zavaleta MD (03/01/2022 3:07 PM) [facility]
--- NOTE | 2022-03-01 15:23 | PHYS DOC ---
Past History Past Medical History: Seizure Past Surgical History: , Tonsillectomy Additional Past Surgical Histo: bilat arm fx Smoking: Non-smoker Alcohol Use: None Drug Use: None General Adult EDM: Chief Complaint: COUGH HPI: HPI: Patient is a 26 year old female who presents with cough and chest congestion. Patient was seen two days ago in the ER for primarily nausea/vomiting, but had shortness of breath at that time as well. She states she returns today for continued cough with "rattling" when she does. Patient denies chest pain, palpitations, sputum production, fever, chills, generalized weakness. Patient reports history of recurrent bronchitis as a child and was recently prescribed a nebulizer machine for breathing treatments, but denies current history of asthma. Review of Systems: Review of Systems: ROS negative or noncontributory except as mentioned in HPI. Allergies: Allergies: Allergies Coded Allergies Type Severity Reaction Last Updated Verified No Known Drug Allergies 02/27/22 No Physical Exam: PE: Constitutional: Well developed, well nourished, no acute distress, non-toxic appearance. HENT: Normocephalic, atraumatic, bilateral external ears normal, nose normal. Eyes: EOMI, conjunctiva normal, no discharge. Neck: Normal range of motion, no stridor. Cardiovascular: Heart regular rate and rhythm. No apparent murmurs, rubs or gallops. Lungs & Thorax: Diffuse wheezing in all lung ortiz, equal thoracic expansion, no retractions. Skin: Warm, dry, no erythema, no rash. Extremities: No cyanosis, no clubbing, ROM intact, no edema. Neurologic: Alert and oriented x4, normal motor function, normal sensory function, no focal deficits noted. Current Patient Data: Vital Signs: Vital Signs Date Time Temp Pulse Resp B/P (MAP) Pulse Ox O2 Delivery O2 Flow Rate FiO2 03/01/22 14:31 98.8 100 18 150/94 (112) 96 Room Air Radiology/Procedures: Radiology/Procedures: PROCEDURE: PORTABLE CHEST 1V Single AP view of the chest. Comparison: 02/27/2022. Indication: Cough and congestion Findings: The heart is not enlarged. There is no pneumothorax or effusion. No air space or interstitial disease. Impression: 1. No acute cardiopulmonary process. Electronically signed by: Tereso Zavaleta MD (03/01/2022 3:07 PM) [facility] Heart Score: C/O Chest Pain: No Course & Med Decision Making: Course & Med Decision Making Pertinent Labs and Imaging studies reviewed. (See chart for details) Chest x-ray does not show any evidence of cardiopulmonary process. Patient's br eathing is improved after 1 DuoNeb. Patient was counseled on use of breathing treatments and steroid for bronchitis/asthma exacerbation. While patient does not have a diagnosis of asthma, I suggest that she speak to her primary care doctor about recurrent wheezing. Return precautions were provided. Patient understands and is agreeable to discharge plan. Dragon Disclaimer: [employer] Disclaimer: This electronic medical record was generated, in whole or in part, using a voice recognition dictation system. Departure Departure: Impression: Primary Impression: Bronchitis with wheezing Disposition: HOME / SELF CARE / HOMELESS Condition: IMPROVED Referrals: MALLORY VILLEGAS DO (PCP) Patient Instructions: Acute Bronchitis, [id number] Additional Instructions: EMERGENCY DEPARTMENT GENERAL DISCHARGE INSTRUCTIONS Thank you for coming to [facility] (ED) today and trusting us with you care. We trust that you had a positive experience in our Emergency Department. If you wish to speak to the department management, you may call the director at [phone]. YOUR FOLLOW UP INSTRUCTIONS ARE FOLLOWS: 1. Follow up with your primary care doctor. If you do not have a primary doctor, please ask for a resource list of physicians or clinics that may be able to assist you with follow up care. 2. The emergency provider has interpreted your imaging studies, if any were ordered. The radiology medical support specialist also reviewed them. If there is a change in the findings, you will be notified in 48 hours when at all possible. 3. If a lab test or culture has been done, your results will be reviewed and you will be notified if you need a change in treatment. 4. Follow instructions verbalized to you and refer to the printouts if needed. ADDITIONAL INSTRUCTIONS AND INFORMATION: 1. Your care today has been supervised by a physician who is specially trained in emergency care. Many problems require more than one evaluation for a complete diagnosis and treatment. We recommend that you schedule your follow up appointment as recommended to ensure complete treatment of you illness or injury. If you are unable to obtain follow up care and continue to have a problem, or if your condition worsens, we recommend that you return to the ED. 2. We are not able to safely determine your condition over the phone nor are we able to give sound medical advice over the phone. For these safety reasons, if you call for medical advice we will ask you to come to the ED for further evaluation. 3. If you have any questions regarding these discharge instructions please call the ED at [phone]. SAFETY INFORMATION: In the interest of safety, wellness, and injury prevention; we encourage you to wear your seat belt, if you smoke; quite smoking, and we encourage family to use a protective helmet for bicycling and other sporting events that present an increased risk for head injury. IF YOUR SYMPTOMS WORSEN OR NEW SYMPTOMS DEVELOP, OR YOU HAVE CONCERNS ABOUT YOUR CONDITION; OR IF YOUR CONDITION WORSENS WHILE YOU ARE WAITING FOR YOUR FOLLOW UP APPOINTMENT; EITHER CONTACT YOUR PRIMARY CARE DOCTOR, THE PHYSICIAN WHOSE NAME AND NUMBER YOU WERE GIVEN, OR RETURN TO THE ED IMMEDIATELY. Scripts Prednisone (PREDNISONE) 50 Mg Tablet 1 TAB PO DAILY for asthma exacerbation, #5 TAB 1 Refill Prov: KASHIF ANTHONY 03/01/22 Ipratropium/Albuterol Sulfate (DUONEB 0.5-3(2.5) MG/3 ML) 3 Ml Ampul.neb 3 ML NEB PRN PRN for WHEEZING, #1 BOX Prov: KASHIF ANTHONY 03/01/22 KASHIF ANTHONY March 01, 2022 15:23
[2022-03-01 15:28] LABS: INFLUENZA A PATIENT NEGATIVE (NEGATIVE); INFLUENZA B PATIENT NEGATIVE (NEGATIVE)
[2022-03-01] MEDS ORDERED: IPRATRPIUM/ALBUTEROL 0.5/2.5MG 3 ML NEBU. NEB ONE (15:30)
[2022-03-01] MEDS ORDERED: DEXAMETHASONE 4 MG TABLET ONE (15:57)
[2022-03-01] MEDS ORDERED: DEXAMETHASONE 4 MG TABLET PO ONE (16:00)
[2022-03-01 16:05] VITALS: BP 144/86
[2022-03-01] MEDS ORDERED: IPRA3AMP29 NEB (16:12)
[2022-03-01] MEDS ORDERED: PRED50TA PO (16:12)
== END 2022-03-01 16:17 | disposition home or self-care (01) ==
LOC: ER 14:21
DX: J40 Bronchitis, not specified as acute or chronic (principal); Z20.822 Contact with and (suspected) exposure to COVID-19
CPT/HCPCS: 71045; 87428; 94640; 99284; C9803; J8540; U0003